=== PATIENT | male | born 1960 | race Caucasian/White ===

== ENCOUNTER 2019-04-15 22:02 | Inpatient (IN) | payer BC ==
[~2019-04-15] VITALS: Ht 185.4 cm; Wt 113.0 kg
[~2019-04-15 22:02] MED LIST: GEMF600T89 PO; GLIP5TAB26 PO; LISI40TA4 PO; METF1000 PO
[2019-04-15] MEDS ORDERED: normal saline 1000ML IV soln IVB ONE ×3 (22:20→23:05)
[2019-04-15] MEDS ORDERED: ondansetron/PF 4mg/2ml inj IV ONE (22:20)
[2019-04-15] MEDS: morphine 4 MG/ML inj SYRINge IV PRN ×2 (22:36→23:34)
[2019-04-15] MEDS ORDERED: morphine 4 MG/ML inj SYRINge IV ONE ×2 (22:55→23:50)
[2019-04-15 22:59] LABS: ALBUMIN 3.6 G/DL (3.4-5.0); ALKALINE PHOSPHATASE 118 IU/L (46-116); TOTAL CARBON DIOXIDE 23.8 MMOL/L (24-32)
[2019-04-15 23:02] LABS: BASOPHILS # (AUTO) 0.1 X10'3 (0-0.2); BASOPHILS % (AUTO) 0.5 % (0-1); EOSINOPHILS # (AUTO) 0.1 X10'3 (0-0.9); EOSINOPHILS % (AUTO) 0.6 % (0-6); HEMATOCRIT 45.6 % (42.0-52.0); HEMOGLOBIN 16.1 g/dl (14.0-17.9); LYMPHOCYTES # (AUTO) 1.7 X10'3 (1.1-4.8); LYMPHOCYTES % (AUTO) 9.1 % (21-51); MEAN CORPUSCULAR HEMOGLOBIN 29.5 PG (27.0-31.0); MEAN CORPUSCULAR HGB CONC 35.2 g/dL (33.0-36.5); MEAN CORPUSCULAR VOLUME 83.8 FL (78-98); MEAN PLATELET VOLUME 8.2 FL (7.4-10.4); MONOCYTES # (AUTO) 0.9 X10'3 (0-0.9); MONOCYTES % (AUTO) 4.4 % (2-12); NEUTROPHILS # (AUTO) 16.3 X10'3 (1.8-7.7); NEUTROPHILS % (AUTO) 85.4 % (42-75); PLATELET COUNT 418 X10'3 (140-440); RED BLOOD COUNT 5.45 X10'6 (4.70-6.10); RED CELL DISTRIBUTION WIDTH 14.8 % (11.5-14.5); WHITE BLOOD COUNT 19.1 X10'3 (4.5-11.0)
[2019-04-15] MEDS ORDERED: ROSU40TA22 (23:16)
[2019-04-15] MEDS ORDERED: CARV6.253 PO (23:16)
[2019-04-15] MEDS ORDERED: CANA300T PO (23:16)
[2019-04-15] MEDS ORDERED: CLOP75TA35 PO (23:16)
[2019-04-15] MEDS ORDERED: FENO145T38 PO (23:16)
[2019-04-15] MEDS ORDERED: ASPI-1264 PO (23:17)
[2019-04-15 23:18] LABS: CLARITY,URINE CLEAR (Clear); COLOR,URINE YELLOW (Yellow); GLUCOSE, URINE >=1000 mg/dl (Neg); KETONES,URINE TRACE mg/dl (Neg); LEUKOCYTE ESTERASE ,URINE NEGATIVE (Neg); NITRITES, URINE NEGATIVE (Neg); OCCULT BLOOD,URINE NEGATIVE (Neg); PH,URINE 5.5 (4.8-8.0); PROTEIN,URINE NEGATIVE (Neg); UA COLLECTION TYPE CLN CATCH MIDSTREAM; UROBILINOGEN,URINE 0.2 E.U/dL (0.2-1.0)
[2019-04-15] MEDS ORDERED: NAPR220T67 PO (23:18)
[2019-04-15 23:25] LABS: MUCUS STRANDS NONE SEEN /LPF (Neg); RBC,URINE 0-2 /HPF (0-2); SQUAMOUS EPITHELIAL CELL,UR FEW /LPF (FEW); WBC,URINE 0-4 /HPF (0-4)
[2019-04-15 23:26] LABS: BACTERIA,URINE NONE SEEN /HPF (Neg)
[2019-04-15 23:36] LABS: ALANINE AMINOTRANSFERASE 53 U/L (12-78); ALBUMIN/GLOBULIN RATIO 1.1 (1.1-1.5); ANION GAP 14 (8-16); ASPARTATE AMINO TRANSFERASE 31 U/L (10-37); BILIRUBIN,TOTAL 0.6 MG/DL (0.1-1.0); BLOOD UREA NITROGEN 23 MG/DL (7-18); CHLORIDE 102 MMOL/L (99-107); GLUCOSE 317 MG/DL (70-104); POTASSIUM 4.1 MMOL/L (3.5-5.1); SODIUM 140 MMOL/L (135-145); TOTAL PROTEIN 6.9 G/DL (6.4-8.2); eGFR 77 ML/MIN
[2019-04-15 23:59] LABS: LIPASE 7824 U/L (73-393)
[2019-04-16] MEDS ORDERED: acetaminophen 325mg tablet PO PRN (00:25)
[2019-04-16] MEDS ORDERED: morphine 2 MG/ML inj. syringe IV PRN ×3 (00:25→04:25)
[2019-04-16] MEDS ORDERED: mag hydrox/Alum hydrox/simeth 30ml oral suspension PO PRN (00:25)
[2019-04-16] MEDS ORDERED: potassium CL 10mEq/100ml bag 100 ML IV PRN ×2 (00:25)
[2019-04-16] MEDS ORDERED: magnesium hydroxide 30ml (MOM) UD suspension PO PRN (00:25)
[2019-04-16] MEDS ORDERED: potassium Cl 20 mEq SR tablet PO PRN ×2 (00:25)
[2019-04-16] MEDS ORDERED: magnesium Cl slow-release 64mg tablet PO PRN (00:25)
[2019-04-16] MEDS ORDERED: magnesium 2GM in 50ml NS 50 ML IV PRN (00:25)
[2019-04-16] MEDS ORDERED: magnesium 4gm in 100ml NS 100 ML IV PRN (00:25)
[2019-04-16] MEDS ORDERED: morphine 4 MG/ML inj SYRINge IV ONE (00:35)
[2019-04-16] MEDS ORDERED: morphine 10mg/ml inj. IV ONE (01:00)
--- NOTE | 2019-04-16 01:20 | NUR ---
Received report from Austyn VIDALES RN. Patient to arrive shortly.
[2019-04-16 01:30] VITALS: BP 145/92
--- NOTE | 2019-04-16 01:30 | NUR ---
Patient arrived to floor via w/c and ambulated over to his bed. A7Ox4 and accompanied by his . Patient settled into bed and VS taken. 98.1, 88, 16, 145/92, 92%RA, pain 5/10.
[2019-04-16] MEDS: normal saline 1000ml 1,000 ML IV SCH ×4 (02:12→22:33)
[2019-04-16] MEDS: ondansetron/PF 4mg/2ml inj IV PRN ×2 (02:16→10:25)
[2019-04-16] MEDS ORDERED: dextrose ORAL solution 15 GM/59 ML bottle PO PRN ×2 (02:25)
[2019-04-16] MEDS ORDERED: glucagon, human recombinant 1mg kit SUBCUT PRN (02:25)
[2019-04-16] MEDS: heparin, porcine 5000 units/ml vial SQ SCH ×4 (02:25→23:54)
[2019-04-16] MEDS ORDERED: dextrose 50%-water 50ml dispensing syringe IV PRN ×2 (02:25)
[2019-04-16] MEDS ORDERED: MESSAGE TO PHARMACY PO ONE (02:25)
--- NOTE | 2019-04-16 03:41 | NUR ---
MD had ordered heparin. Went to give and patient refused stating that he had already taken eliquist earlier in the daytime . Patient stated :"i have the right to refuse right? to which I replied yes, but I don't advise you too as this helps prevent blood clots. Patient still refused.
[2019-04-16] MEDS: HYDROcodone/acetaminophen 5mg/325mg tablet PO PRN ×2 (04:00→14:49)
[2019-04-16] MEDS: morphine 2 MG/ML inj. syringe IV PRN ×2 (05:09→07:27)
[2019-04-16 06:36] LABS: HDL CHOLESTEROL 18 MG/DL (35-60); LDL CHOLESTEROL 41 MG/DL (50-100)
[2019-04-16 06:42] LABS: CHOL/HDL RATIO 22.1 (0.00-4.99); CHOLESTEROL 398 MG/DL (0-200)
--- NOTE | 2019-04-16 06:51 | NUR ---
Problems reprioritized. Patient report given, questions answered & plan of care reviewed with Cynthia MCDERMOTT.
[2019-04-16 07:04] LABS: TRIGLYCERIDES 4298 MG/DL (20-135)
[2019-04-16] MEDS: insulin Lispro (HumaLOG) vial - multi-dose SQ SCH ×3 (07:33→19:04)
[2019-04-16 07:35] VITALS: BP 143/97
[2019-04-16] MEDS: K and/or MAG REPLACEMENT MC SCH ×2 (07:35→20:00)
[2019-04-16 07:45] VITALS: BP 128/95
[2019-04-16] MEDS ORDERED: pantoprazole 40 MG vial IV ONE (07:55)
[2019-04-16] MEDS ORDERED: heparin, porcine 5000 units/ml vial SQ SCH (08:00)
[2019-04-16] MEDS: gemfibrozil 600mg tablet PO SCH ×2 (08:00→20:00)
[2019-04-16] MEDS: carvedilol 6.25mg tablet PO SCH ×2 (08:29→20:51)
[2019-04-16] MEDS: aspirin 325mg tablet PO SCH ×2 (08:30→20:51)
[2019-04-16] MEDS: clopidogrel 75mg tablet PO SCH (08:30)
[2019-04-16] MEDS: morphine 4 MG/ML inj SYRINge IV PRN ×4 (10:25→18:35)
[2019-04-16 11:00] VITALS: BP 103/68
[2019-04-16] MEDS: fenofibrate 145mg tablet PO SCH (11:23)
--- NOTE | 2019-04-16 15:00 | NUR ---
DM consult: Pt admitted for pancreatitis related to hypertriglyceridemia and cholelithiasis with no obstruction. Pt documented with a A1c of 8.8. RD attempted pt bedside visit for DM, hypertriglyceridemia, and pancreatitis education, however pt in pain and requested to be seen later. Pt will need DM, hypertriglyceridemia and pancreatitis education prior to pt discharge. Pt currently NPO and no appetite per MD. LBM 04/15/19. Will continue to monitor. Recommendations: 1. Diet advancement to low fat, carb controlled diet as medically indicated 2. Bowel care as needed 3. weight per rx Addendum: 04/16/19 at 1500 by Wing Kaitlin MUÑIZ Amended: Links added. Addendum: 04/16/19 at [address] ANTONINO Approves
--- NOTE | 2019-04-16 18:26 | NUR ---
Patient in room [facility]AR[facility] 360. I have received report from Francesca MCDERMOTT and had the opportunity to ask questions and assume patient care.
--- NOTE | 2019-04-16 18:27 | NUR ---
Problems reprioritized. Patient report given, questions answered & plan of care reviewed with SHARRON Mayorga.
[2019-04-16 19:00] VITALS: BP 105/79
[2019-04-16] MEDS: insulin glargine (Lantus) pen - multi-dose SQ SCH (21:07)
[2019-04-17] VITALS (11 sets, daily range): BP systolic 69–150; BP diastolic 29–122
[2019-04-17] MEDS ORDERED: normal saline 1000ml 1,000 ML IVB ONE (01:59)
[2019-04-17] MEDS ORDERED: nitroGLYCERIN 0.4mg SUBLingual tab SL PRN (02:15)
--- NOTE | 2019-04-17 02:30 | NUR ---
At 0130 Charge nurse reported to this nurse that patient was uncomfortable and felt SOB (Via PATTERNMAKER who had heard him groaning while checking on A bed). Went to assess patient and found him slumped across the bed. Asked patient what was wrong and he stated " I feel like I am not getting any air." Encouraged patient to sit up instead of slouching and took pulse ox which read 92%on 2 L. Patient stated that he wanted nitro. When asked, patient denied having any chest pain, but said that he felt like this before 2 yrs ago when he had his stents placed. . VS at this time were: 98.3, 100,24,82/53, 92% 0n 2L via NC and denied having any pain. Instructed patient that I would go call MD for orders. New orders received As follows:- put patient in Trendelenburg position, bolus 1000NS for low BP. Draw 1 x troponin and take an EKG. Add prn ativan 1mg prn anxiety q 4hr( give only if systolic over 110), and prn nitro SL for chest pain. Patient was put in tredelenburg but only stayed in bed for about 5 minutes and then stated too uncomfortable, and wanted the recliner.
[2019-04-17 03:11] LABS: BASOPHILS # (AUTO) 0.1 X10'3 (0-0.2); MEAN PLATELET VOLUME 9.1 FL (7.4-10.4); MONOCYTES # (AUTO) 0.4 X10'3 (0-0.9)
[2019-04-17 03:12] LABS: BASOPHILS % (AUTO) 1.2 % (0-1); EOSINOPHILS % (AUTO) 0.5 % (0-6); LYMPHOCYTES # (AUTO) 0.9 X10'3 (1.1-4.8); LYMPHOCYTES % (AUTO) 10.1 % (21-51); MONOCYTES % (AUTO) 4.8 % (2-12); NEUTROPHILS # (AUTO) 7.4 X10'3 (1.8-7.7); NEUTROPHILS % (AUTO) 83.4 % (42-75); PLATELET COUNT 402 X10'3 (140-440); WHITE BLOOD COUNT 8.8 X10'3 (4.5-11.0)
[2019-04-17 03:23] LABS: TOTAL CARBON DIOXIDE 17.7 MMOL/L (24-32)
[2019-04-17 03:53] LABS: ALBUMIN 2.8 G/DL (3.4-5.0); ANION GAP 13 (8-16); BLOOD UREA NITROGEN 37 MG/DL (7-18); CALCIUM 6.8 MG/DL (8.5-10.1); CHLORIDE 98 MMOL/L (99-107); CREATININE 2.47 MG/DL (0.60-1.10); GLUCOSE 302 MG/DL (70-104); MAGNESIUM 1.9 MG/DL (1.5-2.4); POTASSIUM 5.5 MMOL/L (3.5-5.1); SODIUM 129 MMOL/L (135-145); TROPONIN I < 0.04 NG/ML (0.0-0.05); eGFR 27 ML/MIN
[2019-04-17 03:54] LABS: TRIGLYCERIDES 2601 MG/DL (20-135)
[2019-04-17 03:56] LABS: HEMATOCRIT 47.7 % (42.0-52.0); HEMOGLOBIN 15.5 g/dl (14.0-17.9); RED BLOOD COUNT 5.54 X10'6 (4.70-6.10)
[2019-04-17 03:57] LABS: MEAN CORPUSCULAR HGB CONC 32.5 g/dL (33.0-36.5); RED CELL DISTRIBUTION WIDTH 16.1 % (11.5-14.5)
[2019-04-17 04:42] LABS: PLATELET ESTIMATE NORMAL; TOTAL CELLS COUNTED 100
[2019-04-17 04:43] LABS: ANISOCYTOSIS 1+; LARGE PLATELETS FEW; TOXIC VACUOLATION 1+
[2019-04-17] MEDS: normal saline 1000ml 1,000 ML IV SCH ×2 (05:20→08:31)
--- NOTE | 2019-04-17 06:30 | NUR ---
Problems reprioritized. Patient report given, questions answered & plan of care reviewed with Francesca MCDERMOTT.
[2019-04-17] MEDS: K and/or MAG REPLACEMENT MC SCH ×2 (08:00→20:00)
[2019-04-17] MEDS: heparin, porcine 5000 units/ml vial SQ SCH ×2 (08:00→16:00)
[2019-04-17] MEDS: aspirin 325mg tablet PO SCH (08:32)
[2019-04-17] MEDS: gemfibrozil 600mg tablet PO SCH ×2 (08:32→22:29)
[2019-04-17] MEDS: carvedilol 6.25mg tablet PO SCH (08:32)
[2019-04-17] MEDS: atorvastatin 20mg tablet PO SCH (08:33)
[2019-04-17] MEDS: clopidogrel 75mg tablet PO SCH (08:33)
[2019-04-17] MEDS: HYDROcodone/acetaminophen 5mg/325mg tablet PO PRN (08:33)
[2019-04-17] MEDS: fenofibrate 145mg tablet PO SCH (08:33)
[2019-04-17] MEDS: pantoprazole 40mg Tablet.DR PO SCH (08:33)
[2019-04-17] MEDS: insulin Lispro (HumaLOG) vial - multi-dose SQ SCH ×3 (08:39→17:18)
[2019-04-17] MEDS ORDERED: heparin 25,000 UNIT/250ml bag 250 ML IV SCH (10:38)
[2019-04-17] MEDS ORDERED: heparin 10,000 units/1 ML INJ IV PRN (10:40)
[2019-04-17] MEDS ORDERED: heparin 10,000 units/1 ML INJ IV ONE (10:40)
[2019-04-17 11:01] LABS: ABG HCO3 14.7 mmol/L (22.0-26.0); ABG PCO2 (T) 36.4 mmHg (35.0-45.0); ABG PH (T) 7.225 (7.350-7.450); ABG PO2 (T) 192.9 mmHg (83-108); FCOHb 1.1 % (0.5-1.5); FMetHb 0.3 % (0.3-1.12); FO2Hb 97.6 % (94-100); TOTAL HEMOGLOBIN 14.9 G/dl (14.0-17.9)
[2019-04-17 11:04] LABS: BASOPHILS # (AUTO) 0.1 X10'3 (0-0.2); BASOPHILS % (AUTO) 0.7 % (0-1); EOSINOPHILS % (AUTO) 0.2 % (0-6); HEMATOCRIT 44.4 % (42.0-52.0); HEMOGLOBIN 14.9 g/dl (14.0-17.9); LYMPHOCYTES % (AUTO) 13.2 % (21-51); MEAN CORPUSCULAR HEMOGLOBIN 28.6 PG (27.0-31.0); MEAN CORPUSCULAR HGB CONC 33.6 g/dL (33.0-36.5); MEAN CORPUSCULAR VOLUME 85.3 FL (78-98); MEAN PLATELET VOLUME 8.7 FL (7.4-10.4); MONOCYTES # (AUTO) 0.3 X10'3 (0-0.9); MONOCYTES % (AUTO) 3.9 % (2-12); NEUTROPHILS # (AUTO) 6.4 X10'3 (1.8-7.7); PLATELET COUNT 302 X10'3 (140-440); RED BLOOD COUNT 5.21 X10'6 (4.70-6.10); RED CELL DISTRIBUTION WIDTH 16.1 % (11.5-14.5); WHITE BLOOD COUNT 7.8 X10'3 (4.5-11.0)
[2019-04-17 11:28] LABS: ALBUMIN 2.7 G/DL (3.4-5.0); ALKALINE PHOSPHATASE 73 IU/L (46-116); BILIRUBIN,TOTAL 1.2 MG/DL (0.1-1.0); BLOOD UREA NITROGEN 41 MG/DL (7-18); BUN/CREATININE RATIO 15.5 (5.4-32.0); CREATININE 2.65 MG/DL (0.60-1.10); TOTAL CARBON DIOXIDE 17.8 MMOL/L (24-32); eGFR 25 ML/MIN
[2019-04-17] MEDS ORDERED: LIDOcaine 2% 10ml TOPICAL JELLY (Urojet) MM ONE (11:40)
[2019-04-17] MEDS: diatr meglu/diatrizoate 30ml oral sol.-(3 dose) bottle PO SCH ×3 (11:44→17:38)
[2019-04-17] MEDS ORDERED: methylPREDNISolone sod succ 125mg/2ml vial IV ONE (11:50)
--- NOTE | 2019-04-17 12:00 | NUR ---
patient found with low o2 saturation and low BP. assessed patient. called rapid response and paged MD. MD called immediately and gave orders. rapid response team arrived. place patient on non-rebreather and his sats increased to 90-95%. CONTRACT ADMINISTRATION MANAGER gave 200 bolus which increased SBP to 173. CXR, ABG, Labs completed. at that time MD was at bedside. NG and West catheter placed. ABX and new meds that were ordered were given. patient stable on 4l NC and BP stable as well. Patient stated he felt immediate relief and his breathing was easier. will continue to monitor patient.
[2019-04-17 12:20] LABS: ALANINE AMINOTRANSFERASE 232 U/L (12-78); ALBUMIN/GLOBULIN RATIO 0.7 (1.1-1.5); ANION GAP 14 (8-16); ASPARTATE AMINO TRANSFERASE 311 U/L (10-37); CHLORIDE 100 MMOL/L (99-107); GLUCOSE 272 MG/DL (70-104); SODIUM 132 MMOL/L (135-145); TOTAL PROTEIN 6.4 G/DL (6.4-8.2)
[2019-04-17] MEDS: cefepime 1GM in D5W 50mL 50 ML IV SCH (12:28)
[2019-04-17 13:00] LABS: LIPASE 2917 U/L (73-393); POTASSIUM 4.8 MMOL/L (3.5-5.1)
[2019-04-17 13:07] LABS: CALCIUM 7.3 MG/DL (8.5-10.1)
--- NOTE | 2019-04-17 13:32 | NUR ---
PAGER ID: [phone] MESSAGE: Ambar Melgar 360B : how quick would you like the quick prep? patient also stating he will refuse CT and has refused VQ scan. [phone]
[2019-04-17] MEDS: metroNIDAZOLE-Flagyl 500mg/NS 100 ML IV SCH ×2 (13:42→16:00)
[2019-04-17] MEDS: sodium bicarbonate (8.4%) inj. 100 MEQ in sodium chloride 0.45% 1,000 ML IV SCH (16:03)
[2019-04-17] MEDS: LORazepam 1 MG tablet PO PRN ×2 (17:36→22:29)
--- NOTE | 2019-04-17 17:45 | NUR ---
Patient taken to CT scan.
--- NOTE | 2019-04-17 18:16 | NUR ---
Problems reprioritized. Patient report given, questions answered & plan of care reviewed with SHARRON Mayorag.
--- NOTE | 2019-04-17 18:40 | NUR ---
Patient in room [facility]AR[facility] 357. I have received report from Francesca MCDERMOTT and had the opportunity to ask questions and assume patient care.
[2019-04-17] MEDS: methylPREDNISolone sod succ 125mg/2ml vial IV SCH (20:00)
[2019-04-17] MEDS: insulin glargine (Lantus) pen - multi-dose SQ SCH (21:32)
--- NOTE | 2019-04-17 23:00 | NUR ---
DUMP TRUCK DRIVER OFF [address] went into room as bed alarm going off and found patient OOB with nasogastric tube and PIV to LAC pulled out. Patient confused stating that he needed to pee. West catheter shown to pt. but pt. insisted on sitting on the toilet holding his penis. Pt. eventually agreed to get back into bed and supplies gathered for replacing nasogastric tube. REplacement unsuccessful as patient got agitated half way through (it was almost in the correct place and then he pulled it out. Patient then ademently refused to allow for replacement. Total of bile from 1800 to then =450cc. Emptied F/c as getting fukll and total =1900 dark jason - no smell.
[2019-04-18] VITALS: BP 113/71
[2019-04-18] MEDS: ipratropium/albuterol 3ml nebule NEB SCH ×7 (00:06→23:49)
[2019-04-18] MEDS: sodium bicarbonate (8.4%) inj. 100 MEQ in sodium chloride 0.45% 1,000 ML IV SCH ×2 (02:05→17:23)
[2019-04-18] MEDS: heparin, porcine 5000 units/ml vial SQ SCH ×4 (02:17→23:58)
[2019-04-18] MEDS: methylPREDNISolone sod succ 125mg/2ml vial IV SCH ×4 (02:17→20:28)
[2019-04-18] MEDS: metroNIDAZOLE-Flagyl 500mg/NS 100 ML IV SCH ×2 (02:26→08:36)
--- NOTE | 2019-04-18 03:15 | NUR ---
Patient moved to room 357A as kept trying to pull out tubing and get OOB by himself.
--- NOTE | 2019-04-18 05:30 | NUR ---
Erika martines called as patient getting very belligerent stating he was going to get water to drink. Patient is NPO. Pt. has been given swabs through out shift for dry mouth and nurse stated I would give him another if he would just stop trying to climb over the rails. Pt. pushing nurse so erika terry and security called. male staff managed to get patient back into bed and co-operate.
--- NOTE | 2019-04-18 05:51 | NUR ---
Before 10pm last patient had an episode of very high respirations (50) and was put back on the non rebreather mask at 15L as sats down at 88/89. VS were taken and patient was afebrile, 125/88, pulse 105 . Sats went up to 95 and pt. put back on nc at 5L. Pt. now receiving ATC BR TX. Did not give coreg as pt. needed to have ativan to help him relax and did not want BP to drop down. l Addendum: 04/18/19 at 0726 by Tierra Francisco RN Ativan given to help patient relax and try to get some rest. Bed was in low postition with 2 xSR up. Patient was positioned for comfort using pillows.
[2019-04-18 05:54] LABS: HEMATOCRIT 41.6 % (42.0-52.0); HEMOGLOBIN 14.2 g/dl (14.0-17.9); RED BLOOD COUNT 4.93 X10'6 (4.70-6.10)
[2019-04-18 05:57] LABS: MEAN CORPUSCULAR HEMOGLOBIN 28.8 PG (27.0-31.0); MEAN CORPUSCULAR VOLUME 84.5 FL (78-98); MEAN PLATELET VOLUME 8.4 FL (7.4-10.4); PLATELET COUNT 258 X10'3 (140-440); RED CELL DISTRIBUTION WIDTH 15.8 % (11.5-14.5); WHITE BLOOD COUNT 4.9 X10'3 (4.5-11.0)
[2019-04-18 06:19] LABS: ALBUMIN 2.6 G/DL (3.4-5.0); ALBUMIN/GLOBULIN RATIO 0.7 (1.1-1.5); ALKALINE PHOSPHATASE 72 IU/L (46-116); ANION GAP 14 (8-16); BILIRUBIN,TOTAL 1.1 MG/DL (0.1-1.0); BLOOD UREA NITROGEN 43 MG/DL (7-18); BUN/CREATININE RATIO 34.4 (5.4-32.0); CALCIUM 7.6 MG/DL (8.5-10.1); CHLORIDE 102 MMOL/L (99-107); CREATININE 1.25 MG/DL (0.60-1.10); GLUCOSE 153 MG/DL (70-104); LIPASE 1022 U/L (73-393); MAGNESIUM 2.2 MG/DL (1.5-2.4); SODIUM 135 MMOL/L (135-145); TOTAL CARBON DIOXIDE 18.6 MMOL/L (24-32); TOTAL PROTEIN 6.4 G/DL (6.4-8.2); eGFR 59 ML/MIN
[2019-04-18 06:50] LABS: ALANINE AMINOTRANSFERASE 182 U/L (12-78); ASPARTATE AMINO TRANSFERASE 129 U/L (10-37)
[2019-04-18 06:55] LABS: PHOSPHORUS 3.2 MG/DL (2.3-4.5); POTASSIUM 3.9 MMOL/L (3.5-5.1); TRIGLYCERIDES 1806 MG/DL (20-135)
[2019-04-18 06:59] LABS: TOTAL CELLS COUNTED 100
[2019-04-18 07:00] LABS: PLATELET ESTIMATE NORMAL; TOXIC GRANULATION 1+; TOXIC VACUOLATION 1+
[2019-04-18 07:02] LABS: ANISOCYTOSIS 1+
[2019-04-18 08:00] VITALS: BP 169/92
[2019-04-18] MEDS: K and/or MAG REPLACEMENT MC SCH ×2 (08:00→20:00)
[2019-04-18] MEDS: atorvastatin 20mg tablet PO SCH (08:34)
[2019-04-18] MEDS: gemfibrozil 600mg tablet PO SCH ×2 (08:34→20:28)
[2019-04-18] MEDS: fenofibrate 145mg tablet PO SCH (08:34)
[2019-04-18] MEDS: pantoprazole 40mg Tablet.DR PO SCH (08:34)
[2019-04-18] MEDS: aspirin 81mg tab.chew PO SCH (08:34)
[2019-04-18] MEDS: clopidogrel 75mg tablet PO SCH (08:34)
[2019-04-18] MEDS: carVEDilol 3.125mg tablet PO SCH ×2 (08:34→20:28)
[2019-04-18] MEDS: omega-3 acid ethyl esters 1GM capsule PO SCH ×2 (08:35→20:28)
[2019-04-18] MEDS: HYDROcodone/acetaminophen 5mg/325mg tablet PO PRN (08:59)
[2019-04-18] MEDS: cefepime 1GM in D5W 50mL 50 ML IV SCH (10:38)
[2019-04-18 11:00] VITALS: BP 133/90
[2019-04-18 12:30] VITALS: BP 146/94
[2019-04-18] MEDS: morphine 2 MG/ML inj. syringe IV PRN ×2 (12:30→23:59)
[2019-04-18] MEDS: insulin Lispro (HumaLOG) vial - multi-dose SQ SCH ×2 (13:14→19:04)
[2019-04-18] MEDS: metroNIDAZOLE 500mg tablet PO SCH ×2 (17:22→23:58)
[2019-04-18 20:00] VITALS: BP 158/98
[2019-04-18] MEDS: lactobacillus rhamnosus 10,000 MMU CELLS/CAPSULE PO SCH (20:28)
[2019-04-18] MEDS: insulin glargine (Lantus) pen - multi-dose SQ SCH (20:36)
[2019-04-18] MEDS: methylPREDNISolone sod succ/PF 40mg inj. IV SCH (23:58)
[2019-04-19] VITALS: BP 156/102
[2019-04-19] MEDS: sodium bicarbonate (8.4%) inj. 100 MEQ in sodium chloride 0.45% 1,000 ML IV SCH ×2 (00:05→10:10)
[2019-04-19] MEDS: ipratropium/albuterol 3ml nebule NEB SCH ×6 (03:42→23:00)
--- NOTE | 2019-04-19 06:12 | NUR ---
Problems reprioritized. Patient report given, questions answered & plan of care reviewed with SHARRON Avendano.
[2019-04-19 06:34] LABS: BASOPHILS % (AUTO) 0.2 % (0-1); EOSINOPHILS % (AUTO) 0.1 % (0-6); HEMATOCRIT 40.5 % (42.0-52.0); HEMOGLOBIN 13.6 g/dl (14.0-17.9); LYMPHOCYTES # (AUTO) 0.5 X10'3 (1.1-4.8); LYMPHOCYTES % (AUTO) 9.3 % (21-51); MEAN CORPUSCULAR HEMOGLOBIN 28.1 PG (27.0-31.0); MEAN CORPUSCULAR HGB CONC 33.6 g/dL (33.0-36.5); MEAN CORPUSCULAR VOLUME 83.5 FL (78-98); MEAN PLATELET VOLUME 8.4 FL (7.4-10.4); MONOCYTES # (AUTO) 0.4 X10'3 (0-0.9); MONOCYTES % (AUTO) 7.4 % (2-12); NEUTROPHILS # (AUTO) 4.8 X10'3 (1.8-7.7); PLATELET COUNT 311 X10'3 (140-440); RED BLOOD COUNT 4.85 X10'6 (4.70-6.10); WHITE BLOOD COUNT 5.7 X10'3 (4.5-11.0)
[2019-04-19 07:05] LABS: ALANINE AMINOTRANSFERASE 151 U/L (12-78); ALBUMIN 2.6 G/DL (3.4-5.0); ALBUMIN/GLOBULIN RATIO 0.7 (1.1-1.5); ALKALINE PHOSPHATASE 74 IU/L (46-116); ANION GAP 16 (8-16); ASPARTATE AMINO TRANSFERASE 92 U/L (10-37); BILIRUBIN,TOTAL 0.9 MG/DL (0.1-1.0); BLOOD UREA NITROGEN 35 MG/DL (7-18); BUN/CREATININE RATIO 37.2 (5.4-32.0); CALCIUM 8.4 MG/DL (8.5-10.1); CHLORIDE 106 MMOL/L (99-107); CREATININE 0.94 MG/DL (0.60-1.10); GLUCOSE 210 MG/DL (70-104); LIPASE 768 U/L (73-393); MAGNESIUM 2.8 MG/DL (1.5-2.4); PHOSPHORUS 2.3 MG/DL (2.3-4.5); SODIUM 143 MMOL/L (135-145); TOTAL CARBON DIOXIDE 20.9 MMOL/L (24-32); TOTAL PROTEIN 6.2 G/DL (6.4-8.2); TRIGLYCERIDES 908 MG/DL (20-135); eGFR 82 ML/MIN
[2019-04-19 07:06] LABS: POTASSIUM 3.9 MMOL/L (3.5-5.1)
[2019-04-19 07:27] VITALS: BP 162/98
[2019-04-19 07:47] LABS: TOTAL CELLS COUNTED 100
[2019-04-19 07:48] LABS: ANISOCYTOSIS 1+; PLATELET ESTIMATE NORMAL
[2019-04-19] MEDS: K and/or MAG REPLACEMENT MC SCH ×2 (08:00→20:00)
[2019-04-19] MEDS: aspirin 81mg tab.chew PO SCH (08:35)
[2019-04-19] MEDS: gemfibrozil 600mg tablet PO SCH ×2 (08:36→19:31)
[2019-04-19] MEDS: atorvastatin 20mg tablet PO SCH (08:36)
[2019-04-19] MEDS: carVEDilol 3.125mg tablet PO SCH ×2 (08:36→19:31)
[2019-04-19] MEDS: clopidogrel 75mg tablet PO SCH (08:36)
[2019-04-19] MEDS: heparin, porcine 5000 units/ml vial SQ SCH ×2 (08:37→16:49)
[2019-04-19] MEDS: cefepime 1GM in D5W 50mL 50 ML IV SCH (08:37)
[2019-04-19] MEDS: fenofibrate 145mg tablet PO SCH (08:37)
[2019-04-19] MEDS: insulin Lispro (HumaLOG) vial - multi-dose SQ SCH ×3 (08:40→19:27)
[2019-04-19] MEDS: methylPREDNISolone sod succ/PF 40mg inj. IV SCH (08:43)
[2019-04-19] MEDS: metroNIDAZOLE 500mg tablet PO SCH ×2 (08:43→15:57)
[2019-04-19] MEDS: lactobacillus rhamnosus 10,000 MMU CELLS/CAPSULE PO SCH ×2 (08:43→19:31)
[2019-04-19] MEDS: omega-3 acid ethyl esters 1GM capsule PO SCH ×2 (10:10→19:40)
[2019-04-19] MEDS: pantoprazole 40mg Tablet.DR PO SCH (10:10)
[2019-04-19 12:00] VITALS: BP 157/92
[2019-04-19] MEDS: normal saline 1000ml 1,000 ML IV SCH (14:03)
--- NOTE | 2019-04-19 15:15 | NUR ---
Reassessment: Pt s/p rapid response 04/17 d/t respiratory distress. Pt pulled out NG tube, currently with a sitter d/t s/p code terry 04/18. PO diet has been advanced to clear liquid today and pt with 100% PO intake. TG and lipase levels are trending towards normal limits however remain elevated, TG 908 and lipase 768 today. LBM 04/18. Will continue to follow and f/u with pt for educations once more appropriate. Recommendations: 1. Diet advancement to low fat, carb controlled diet as medically indicated 2. Nutrition therapy educations once stable 3. Bowel care as needed 4. Weight per rx Addendum: 04/19/19 at 1515 [address] Amended: Links added.
--- NOTE | 2019-04-19 15:59 | NUR ---
DM education with referral to outpatient DM class, high triglyceride nutrition therapy, heart healthy consistent carbohydrate nutrition therapy, and pancreatitis nutrition therapy educations with RD contact information mailed to patient's home address found in [employer]. Will f/u with pt for verbal review once stable. Addendum: 04/19/19 at 15[address] by [address] Amended: Links added.
[2019-04-19] MEDS: HYDROcodone/acetaminophen 5mg/325mg tablet PO PRN (16:00)
[2019-04-19 18:00] VITALS: BP 128/78
--- NOTE | 2019-04-19 18:33 | NUR ---
Problems reprioritized. Patient report given, questions answered & plan of care reviewed with SHARRON Rob.
--- NOTE | 2019-04-19 18:38 | NUR ---
Patient in room [facility] 357A. I have received report from SHARRON Sagastume and had the opportunity to ask questions and assume patient care.
[2019-04-19] MEDS ORDERED: VANCOMYCIN LEVEL IV ONE (19:30)
[2019-04-19] MEDS ORDERED: methylPREDNISolone sod succ/PF 40mg inj. IV SCH (20:00)
[2019-04-19] MEDS: insulin glargine (Lantus) pen - multi-dose SQ SCH (21:20)
[2019-04-19 23:15] VITALS: BP 140/94
[2019-04-19] MEDS ORDERED: aspirin 81mg tab.chew PO ONE (23:45)
[2019-04-20] VITALS: BP 139/79
[2019-04-20] MEDS: metroNIDAZOLE 500mg tablet PO SCH ×4 (00:06→23:34)
[2019-04-20] MEDS: heparin, porcine 5000 units/ml vial SQ SCH ×4 (00:08→23:34)
--- NOTE | 2019-04-20 00:10 | NUR ---
Hospitalist informed that the Troponin level was 0.24 and he was still having some chest pain. Orders received :Troponin at Q3 hr and 6hrs, 0.2mg Nitro patch. Will continue to monitor.
--- NOTE | 2019-04-20 00:16 | NUR ---
2315: Patient reported chest pain to [employer] while she was taking his vital signs. BP:140/94, HR:66, R:16, 95 3L. Pain at a 5. Patient states the pain is "chest"pain, but is pointing to the epigastric area, it is not radiating, and it fung and feels tight. I gave Maalox, and ECG was done ( showed sinus rhythm) I also took his blood sugar and it was 156. I went in to give him Nitro and he informed me that he had already taken two of his own. One at 1999 and the second at 2099. I educated him on how he showed not be taking his own medications and I took them out of his room. I had been in his room at [phone] passing his scheduled medications, and I did his assessment. I even asked him if he was having any abdominal pain or any other pain and he denied having any. He did not mention having chest pain at that time. At 2119 I was in his room taking his blood sugar and giving insulin and he did not mention any chest pain. Hospitalist was also notified and an order for two troponins were given. 0000: Patient still complaining of chest pain. He wanted Aspirin. I called the Hospitalist back and got an order for Aspirin chewable. Will continue to monitor. Addendum: 04/20/19 at 0321 by Darron Polk RN *should
[2019-04-20] MEDS ORDERED: nitroGLYCERIN 0.2mg/hour patch TD SCH (01:22)
[2019-04-20] MEDS: HYDROcodone/acetaminophen 5mg/325mg tablet PO PRN ×2 (02:58→23:00)
[2019-04-20 03:00] VITALS: BP 147/83
[2019-04-20] MEDS: ipratropium/albuterol 3ml nebule NEB SCH ×6 (03:00→23:00)
[2019-04-20 03:46] LABS: HEMATOCRIT 36.7 % (42.0-52.0); HEMOGLOBIN 12.2 g/dl (14.0-17.9); MEAN CORPUSCULAR HEMOGLOBIN 27.8 PG (27.0-31.0); MEAN CORPUSCULAR HGB CONC 33.3 g/dL (33.0-36.5); MEAN CORPUSCULAR VOLUME 83.5 FL (78-98); MEAN PLATELET VOLUME 8.4 FL (7.4-10.4); PLATELET COUNT 271 X10'3 (140-440); WHITE BLOOD COUNT 6.4 X10'3 (4.5-11.0)
[2019-04-20 04:00] LABS: ALANINE AMINOTRANSFERASE 109 U/L (12-78); ALBUMIN 2.5 G/DL (3.4-5.0); ALBUMIN/GLOBULIN RATIO 0.8 (1.1-1.5); ALKALINE PHOSPHATASE 67 IU/L (46-116); ANION GAP 7 (8-16); ASPARTATE AMINO TRANSFERASE 56 U/L (10-37); BILIRUBIN,TOTAL 0.8 MG/DL (0.1-1.0); BLOOD UREA NITROGEN 33 MG/DL (7-18); BUN/CREATININE RATIO 37.9 (5.4-32.0); CALCIUM 8.2 MG/DL (8.5-10.1); CHLORIDE 106 MMOL/L (99-107); CREATININE 0.87 MG/DL (0.60-1.10); GLUCOSE 184 MG/DL (70-104); LIPASE 600 U/L (73-393); MAGNESIUM 2.5 MG/DL (1.5-2.4); PHOSPHORUS 2.2 MG/DL (2.3-4.5); POTASSIUM 3.9 MMOL/L (3.5-5.1); SODIUM 140 MMOL/L (135-145); TOTAL CARBON DIOXIDE 27.3 MMOL/L (24-32); TOTAL PROTEIN 5.6 G/DL (6.4-8.2); TRIGLYCERIDES 394 MG/DL (20-135); TROPONIN I 0.24 NG/ML (0.0-0.05); eGFR 90 ML/MIN
--- NOTE | 2019-04-20 04:28 | NUR ---
3hr Troponin level was drawn. It remains 0.24. Patient is resting with eyes closed in no apparent distress at this time.
[2019-04-20] MEDS: morphine 2 MG/ML inj. syringe IV PRN ×10 (04:47→23:35)
--- NOTE | 2019-04-20 06:31 | NUR ---
Problems reprioritized. Patient report given, questions answered & plan of care reviewed with SHARRON Rios.
[2019-04-20 07:00] VITALS: BP 147/88
[2019-04-20 07:35] LABS: ANISOCYTOSIS 1+; PLATELET ESTIMATE NORMAL; POLYCHROMASIA 1+; TOTAL CELLS COUNTED 100; TOXIC GRANULATION 1+
[2019-04-20] MEDS: pantoprazole 40mg Tablet.DR PO SCH (07:37)
[2019-04-20] MEDS: K and/or MAG REPLACEMENT MC SCH ×2 (08:00→20:00)
[2019-04-20] MEDS: sodium bicarbonate 650mg tablet PO SCH ×3 (08:11→21:06)
[2019-04-20] MEDS: carVEDilol 3.125mg tablet PO SCH ×2 (08:12→20:00)
[2019-04-20] MEDS: clopidogrel 75mg tablet PO SCH (08:12)
[2019-04-20] MEDS: lactobacillus rhamnosus 10,000 MMU CELLS/CAPSULE PO SCH ×2 (08:12→21:05)
[2019-04-20] MEDS: atorvastatin 20mg tablet PO SCH (08:12)
[2019-04-20] MEDS: aspirin 81mg tab.chew PO SCH (08:12)
[2019-04-20] MEDS: fenofibrate 145mg tablet PO SCH (08:12)
[2019-04-20] MEDS: gemfibrozil 600mg tablet PO SCH ×2 (08:12→21:06)
[2019-04-20] MEDS: methylPREDNISolone sod succ/PF 40mg inj. IV SCH (08:13)
[2019-04-20] MEDS: omega-3 acid ethyl esters 1GM capsule PO SCH ×2 (08:19→21:05)
[2019-04-20] MEDS: cefepime 1GM in D5W 50mL 50 ML IV SCH (08:20)
[2019-04-20] MEDS: insulin Lispro (HumaLOG) vial - multi-dose SQ SCH ×3 (08:31→19:50)
[2019-04-20] MEDS: normal saline 1000ml 1,000 ML IV SCH (10:00)
--- NOTE | 2019-04-20 10:30 | NUR ---
PT STILL C/O CHEST PAIN. 6AM TROP SAME IT TEACHER, NOT INCREASED BUT STILL 0.24. DR BANERJEE HAS ORDERED MAURILIO SCAN FOR TOMORROW. WILL CONTINUE TO MONITOR.
[2019-04-20] MEDS ORDERED: regadenoson 0.4mg/5ml syringe IV ONE (10:40)
[2019-04-20] MEDS ORDERED: metoprolol tartrate 1mg/ml inj IV PRN (10:40)
[2019-04-20] MEDS ORDERED: potassium phosphate inj 30 MMOL in normal saline 500ml IV soln 490 ML IV ONE (10:40)
[2019-04-20] MEDS ORDERED: aminophylline 250mg/10ml inj. IV PRN (10:40)
[2019-04-20] MEDS ORDERED: nitroGLYCERIN 0.4mg SUBLingual tab SL PRN (10:40)
[2019-04-20 11:00] VITALS: BP 144/86
--- NOTE | 2019-04-20 14:00 | NUR ---
DR BANERJEE HAS ROUNDED ON PATIENT. PT STILL C/O CHEST PAIN. PER DR BANERJEE, CONTINUE TO GIVE Q1H MORPHINE PRN FOR CHEST PAIN, PUT ON TELE MONITOR, KEEP ON 02, PT NASAL CANNULA PUT BACK ON AT 2L. NEW SINGLE TROPONIN ORDERED. PER DR BANERJEE IF TROP HAS INCREASED FROM 0.24 PT WILL NEED TO START HEPARIN DRIP. I WILL CALL HIM WITH RESULTS.
--- NOTE | 2019-04-20 15:00 | NUR ---
TROPONIN DECREASED FROM AM. 0.12. NOTIFIED DR BANERJEE OF RESULTS. NO NEED FOR HEPARIN DRIP AT THIS TIME ACCORDING TO PREVIOUS CONVERSATION WITH DR BANERJEE. MORPHINE BEING GIVEN EVERY 2-3 HR BY PATIENT REQUEST. STATES PAIN HAS NOT CHANGED BUT MORPHINE HELPS FOR SHORT TIME. WILL CONTINUE TO MONITOR.
--- NOTE | 2019-04-20 16:27 | NUR ---
Patient and his seen at bedside and given written DM education with referral to outpatient DM class, high triglyceride nutrition therapy, heart healthy consistent carbohydrate nutrition therapy, and pancreatitis nutrition therapy education handouts with verbal review of all. Addendum: 04/20/19 at [address] Amended: Links added.
[2019-04-20 19:30] VITALS: BP 159/94
--- NOTE | 2019-04-20 19:30 | NUR ---
mary SOB Addendum: 04/21/19 at 0229 by Genie Dee RN Amended: Links added.
--- NOTE | 2019-04-20 20:06 | NUR ---
Problems reprioritized. Patient report given, questions answered & plan of care reviewed with Pat RN.
--- NOTE | 2019-04-20 22:00 | NUR ---
pt's hear rate monitored; discussed with Tamara on tele unit who reports pt's HR trend has been below 60; pt's b/p at 159/94 earlier this shift; coreg held; Dr Waite informed; also informed of pt's chest pain & meds ordered; discussed norco & ativan for breakthru pain; aware of order for Halie scan tomorrow
[2019-04-20 23:00] VITALS: BP 168/97
[2019-04-20] MEDS: insulin glargine (Lantus) pen - multi-dose SQ SCH (23:09)
[2019-04-21] VITALS (18 sets, daily range): BP systolic 108–164; BP diastolic 46–100
[2019-04-21] MEDS: morphine 2 MG/ML inj. syringe IV PRN ×8 (00:53→22:32)
[2019-04-21] MEDS: LORazepam 1 MG tablet PO PRN (01:09)
[2019-04-21] MEDS ORDERED: nitroGLYCERIN 0.2mg/hour patch TD SCH (02:43)
[2019-04-21] MEDS: ipratropium/albuterol 3ml nebule NEB SCH ×6 (03:00→23:00)
[2019-04-21] MEDS: HYDROcodone/acetaminophen 5mg/325mg tablet PO PRN ×2 (03:34→19:17)
[2019-04-21] MEDS: normal saline 1000ml 1,000 ML IV SCH (04:07)
[2019-04-21 05:27] LABS: BASOPHILS % (AUTO) 0.1 % (0-1); EOSINOPHILS # (AUTO) 0.1 X10'3 (0-0.9); EOSINOPHILS % (AUTO) 0.7 % (0-6); HEMATOCRIT 39.3 % (42.0-52.0); HEMOGLOBIN 13.3 g/dl (14.0-17.9); LYMPHOCYTES # (AUTO) 1.2 X10'3 (1.1-4.8); LYMPHOCYTES % (AUTO) 12.3 % (21-51); MEAN CORPUSCULAR HEMOGLOBIN 28.1 PG (27.0-31.0); MEAN CORPUSCULAR HGB CONC 33.8 g/dL (33.0-36.5); MEAN CORPUSCULAR VOLUME 83.3 FL (78-98); MEAN PLATELET VOLUME 8.5 FL (7.4-10.4); MONOCYTES # (AUTO) 0.6 X10'3 (0-0.9); MONOCYTES % (AUTO) 6.5 % (2-12); NEUTROPHILS # (AUTO) 7.6 X10'3 (1.8-7.7); NEUTROPHILS % (AUTO) 80.4 % (42-75); PLATELET COUNT 233 X10'3 (140-440); RED BLOOD COUNT 4.71 X10'6 (4.70-6.10); RED CELL DISTRIBUTION WIDTH 16.1 % (11.5-14.5); WHITE BLOOD COUNT 9.5 X10'3 (4.5-11.0)
[2019-04-21] MEDS: nitroGLYCERIN 0.4mg/hour patch TD SCH (05:29)
[2019-04-21 05:53] LABS: ALANINE AMINOTRANSFERASE 103 U/L (12-78); ALBUMIN 2.7 G/DL (3.4-5.0); ALBUMIN/GLOBULIN RATIO 0.8 (1.1-1.5); ALKALINE PHOSPHATASE 88 IU/L (46-116); ANION GAP 9 (8-16); ASPARTATE AMINO TRANSFERASE 69 U/L (10-37); BILIRUBIN,TOTAL 1.1 MG/DL (0.1-1.0); BLOOD UREA NITROGEN 16 MG/DL (7-18); BUN/CREATININE RATIO 22.5 (5.4-32.0); CALCIUM 8.3 MG/DL (8.5-10.1); CHLORIDE 103 MMOL/L (99-107); CREATININE 0.71 MG/DL (0.60-1.10); GLUCOSE 122 MG/DL (70-104); LIPASE 717 U/L (73-393); MAGNESIUM 1.9 MG/DL (1.5-2.4); PHOSPHORUS 2.7 MG/DL (2.3-4.5); POTASSIUM 3.5 MMOL/L (3.5-5.1); SODIUM 139 MMOL/L (135-145); TOTAL CARBON DIOXIDE 26.7 MMOL/L (24-32); TOTAL PROTEIN 5.9 G/DL (6.4-8.2); TRIGLYCERIDES 538 MG/DL (20-135); eGFR > 90 ML/MIN
--- NOTE | 2019-04-21 06:46 | NUR ---
Patient in room [facility] 348. I have received report from SHARRON ROSS and had the opportunity to ask questions and assume patient care.
[2019-04-21] MEDS: clopidogrel 75mg tablet PO SCH (08:00)
[2019-04-21] MEDS: K and/or MAG REPLACEMENT MC SCH ×2 (08:00→20:00)
[2019-04-21] MEDS: sodium bicarbonate 650mg tablet PO SCH ×3 (08:00→20:43)
[2019-04-21] MEDS: heparin, porcine 5000 units/ml vial SQ SCH ×3 (08:00→23:57)
[2019-04-21] MEDS: cefepime 1GM in D5W 50mL 50 ML IV SCH (08:07)
[2019-04-21] MEDS: methylPREDNISolone sod succ/PF 40mg inj. IV SCH (08:07)
[2019-04-21] MEDS: lactobacillus rhamnosus 10,000 MMU CELLS/CAPSULE PO SCH ×2 (08:08→20:43)
[2019-04-21] MEDS: atorvastatin 20mg tablet PO SCH (08:08)
[2019-04-21] MEDS: pantoprazole 40mg Tablet.DR PO SCH (08:08)
[2019-04-21] MEDS: gemfibrozil 600mg tablet PO SCH ×2 (08:08→20:43)
[2019-04-21] MEDS: fenofibrate 145mg tablet PO SCH (08:08)
[2019-04-21] MEDS: metroNIDAZOLE 500mg tablet PO SCH ×3 (08:08→23:57)
[2019-04-21] MEDS: aspirin 81mg tab.chew PO SCH (08:30)
--- NOTE | 2019-04-21 10:49 | NUR ---
REGULAR COKE BEVERAGE GIVEN TO PATIENT TO REVERSE SIDE EFFECTS OF LEXISCAN PROCEDURE, NO DIET COKE AVAILABLE.
[2019-04-21] MEDS: omega-3 acid ethyl esters 1GM capsule PO SCH ×2 (12:09→20:49)
[2019-04-21] MEDS: carVEDilol 3.125mg tablet PO SCH ×2 (12:09→20:43)
--- NOTE | 2019-04-21 13:45 | NUR ---
GAVE REPORT TO SHARRON EKNYON ON PCU
[2019-04-21] MEDS: ondansetron/PF 4mg/2ml inj IV PRN (14:39)
[2019-04-21] MEDS: insulin Lispro (HumaLOG) vial - multi-dose SQ SCH ×2 (14:43→19:27)
--- NOTE | 2019-04-21 15:07 | NUR ---
recieved report from Britta.RN pt arrived to Rm 3023B A&Ox3
[2019-04-21] MEDS: insulin glargine (Lantus) pen - multi-dose SQ SCH (21:45)
--- NOTE | 2019-04-21 22:33 | NUR ---
Pt C/o of 8 sternal burning pain did not increase to palpation patient stated it was different than his previous experience of chest pain, made him feel "More tired than usual and sob". 12 lead EKG was performed. 2mg IVP morphine was administered 5 mins post admin patient stated he pain is @ "310 now" he is sitting at the edge of the bed in significantly less distress. Pt had chemical +qian scan earlier today possible consult with cardiology tomorrow AM.
--- NOTE | 2019-04-21 22:53 | NUR ---
ekg assessed per Dr. Waite
[2019-04-22] VITALS (13 sets, daily range): BP systolic 120–164; BP diastolic 64–92
[2019-04-22] MEDS: morphine 2 MG/ML inj. syringe IV PRN ×6 (02:09→09:57)
[2019-04-22] MEDS: ipratropium/albuterol 3ml nebule NEB SCH ×3 (04:00→11:00)
[2019-04-22] MEDS: nitroGLYCERIN 0.4mg/hour patch TD SCH (04:57)
[2019-04-22] MEDS: normal saline 1000ml 1,000 ML IV SCH (04:58)
--- NOTE | 2019-04-22 06:12 | NUR ---
Patient in room PCU 3023b. I have received report from Felicia MCDERMOTT and had the opportunity to ask questions and assume patient care.
[2019-04-22 07:02] LABS: ALANINE AMINOTRANSFERASE 110 U/L (12-78); ALBUMIN 2.2 G/DL (3.4-5.0); ALKALINE PHOSPHATASE 153 IU/L (46-116); ANION GAP 8 (8-16); ASPARTATE AMINO TRANSFERASE 119 U/L (10-37); BILIRUBIN,TOTAL 4.3 MG/DL (0.1-1.0); BLOOD UREA NITROGEN 9 MG/DL (7-18); BUN/CREATININE RATIO 14.1 (5.4-32.0); CALCIUM 8.4 MG/DL (8.5-10.1); CHLORIDE 101 MMOL/L (99-107); CREATININE 0.64 MG/DL (0.60-1.10); GLUCOSE 116 MG/DL (70-104); LIPASE 552 U/L (73-393); MAGNESIUM 1.6 MG/DL (1.5-2.4); SODIUM 136 MMOL/L (135-145); TOTAL CARBON DIOXIDE 26.9 MMOL/L (24-32); eGFR > 90 ML/MIN
[2019-04-22 07:06] LABS: ALBUMIN/GLOBULIN RATIO 0.7 (1.1-1.5); PHOSPHORUS 2.5 MG/DL (2.3-4.5); POTASSIUM 3.8 MMOL/L (3.5-5.1); TOTAL PROTEIN 5.5 G/DL (6.4-8.2); TRIGLYCERIDES 404 MG/DL (20-135)
[2019-04-22 07:38] LABS: BASOPHILS % (AUTO) 0.2 % (0-1); EOSINOPHILS # (AUTO) 0.1 X10'3 (0-0.9); EOSINOPHILS % (AUTO) 0.6 % (0-6); HEMATOCRIT 39.8 % (42.0-52.0); HEMOGLOBIN 13.1 g/dl (14.0-17.9); LYMPHOCYTES # (AUTO) 0.8 X10'3 (1.1-4.8); LYMPHOCYTES % (AUTO) 5.7 % (21-51); MEAN CORPUSCULAR HEMOGLOBIN 27.7 PG (27.0-31.0); MEAN CORPUSCULAR VOLUME 83.8 FL (78-98); MEAN PLATELET VOLUME 8.8 FL (7.4-10.4); MONOCYTES # (AUTO) 0.7 X10'3 (0-0.9); MONOCYTES % (AUTO) 5.6 % (2-12); NEUTROPHILS # (AUTO) 11.6 X10'3 (1.8-7.7); NEUTROPHILS % (AUTO) 87.9 % (42-75); PLATELET COUNT 215 X10'3 (140-440); RED BLOOD COUNT 4.75 X10'6 (4.70-6.10); RED CELL DISTRIBUTION WIDTH 16.4 % (11.5-14.5); WHITE BLOOD COUNT 13.2 X10'3 (4.5-11.0)
[2019-04-22] MEDS: K and/or MAG REPLACEMENT MC SCH ×2 (08:00→20:00)
[2019-04-22] MEDS: omega-3 acid ethyl esters 1GM capsule PO SCH ×2 (08:00→20:38)
[2019-04-22] MEDS: heparin, porcine 5000 units/ml vial SQ SCH (08:00)
[2019-04-22] MEDS: cefepime 1GM in D5W 50mL 50 ML IV SCH (08:11)
[2019-04-22] MEDS: gemfibrozil 600mg tablet PO SCH ×2 (08:11→20:37)
[2019-04-22] MEDS: fenofibrate 145mg tablet PO SCH (08:12)
[2019-04-22] MEDS: clopidogrel 75mg tablet PO SCH (08:12)
[2019-04-22] MEDS: pantoprazole 40mg Tablet.DR PO SCH (08:12)
[2019-04-22] MEDS: metroNIDAZOLE 500mg tablet PO SCH ×3 (08:12→23:51)
[2019-04-22] MEDS: carVEDilol 3.125mg tablet PO SCH ×2 (08:12→20:38)
[2019-04-22] MEDS: sodium bicarbonate 650mg tablet PO SCH ×3 (08:12→20:37)
[2019-04-22] MEDS: lactobacillus rhamnosus 10,000 MMU CELLS/CAPSULE PO SCH ×2 (08:12→20:37)
[2019-04-22] MEDS: atorvastatin 20mg tablet PO SCH (08:13)
[2019-04-22] MEDS: aspirin 81mg tab.chew PO SCH (08:30)
--- NOTE | 2019-04-22 10:42 | NUR ---
patient taken to clam bed laborer
[2019-04-22] MEDS ORDERED: verapamil 2.5 mg/ml inj IV ONE (10:44)
[2019-04-22] MEDS ORDERED: iohexol 350MG/ML 100ml bottle IV ONE ×2 (10:45→11:14)
[2019-04-22] MEDS ORDERED: heparin 1,000unit/ml 10ml vial 10 ML ONE (10:45)
[2019-04-22] MEDS ORDERED: LIDOcaine 1% (10mg/ml)w/preservative injection 20ml MDV ONE (10:45)
[2019-04-22] MEDS ORDERED: nitroGLYCERIN-Tridil 50MG/D5W 250 ML IV ONE (10:45)
[2019-04-22] MEDS ORDERED: midazolam 2 mg/2 ml injection ONE (10:46)
[2019-04-22] MEDS ORDERED: fentaNYL/PF 50MCG/1 ML 2ML syringe ONE (10:46)
[2019-04-22] MEDS ORDERED: proCHLORperazine 10 MG/2 ml inj ONE (10:46)
[2019-04-22] MEDS ORDERED: clopidogrel 300mg tablet ONE (11:53)
--- NOTE | 2019-04-22 12:05 | NUR ---
Patient returned from cath. Radial approach done, stents placed in RCA and LAD. Per chemical lab supervisor report, first release of air will be at 1445. Site shows no bleeding, post op vital signs initiated. BP 145/83, O2 92, HR 101, RR 18, no complaints of pain. Will monitor closely Addendum: 04/22/19 at 1222 by Yancy Sanchez RN * per Kiki Webber/Edna plavix order because he is on Brilinta s/p chemical lab supervisor. Dr Cancino also placed discharge medication orders that are placed in the front of the chart for when patient discharges
[2019-04-22] MEDS ORDERED: ondansetron/PF 4mg/2ml inj IV PRN (12:30)
[2019-04-22] MEDS ORDERED: proCHLORperazine 10 MG/2 ml inj IV PRN (12:30)
[2019-04-22] MEDS ORDERED: HYDROcodone/acetaminophen 5mg/325mg tablet PO PRN (12:30)
[2019-04-22] MEDS ORDERED: OXAZEpam 15mg capsule PO PRN (12:30)
[2019-04-22] MEDS ORDERED: HYDROcodone/acetaminophen 10/325mg tab PO PRN (12:30)
[2019-04-22] MEDS ORDERED: ipratropium/albuterol 3ml nebule NEB PRN (14:55)
--- NOTE | 2019-04-22 15:00 | NUR ---
Reassessment: Pt PO 75-100% heart healthy and clear liquid meals. Placed on clear liquids s/p cardiac cath. LBM 04/20. TG down to 404 and lipase down to 552 today. Will monitor for return to solid foods and PO tolerance. Recommendations: 1. Diet advancement to low fat, carb controlled diet as medically indicated 2. Bowel care as needed 3. Weight per rx Addendum: 04/22/19 at [address] Amended: Links added.
--- NOTE | 2019-04-22 18:21 | NUR ---
Problems reprioritized. Patient report given, questions answered & plan of care reviewed with Felicia MCDERMOTT.
[2019-04-22] MEDS: insulin glargine (Lantus) pen - multi-dose SQ SCH (20:50)
[2019-04-22] MEDS: LORazepam 1 MG tablet PO PRN (21:20)
--- NOTE | 2019-04-23 01:40 | NUR ---
REFUSED 2099 ACCUCHECK AND COVERAGE
[2019-04-23 03:00] VITALS: BP 167/85
[2019-04-23] MEDS: nitroGLYCERIN 0.4mg/hour patch TD SCH (04:26)
[2019-04-23 05:35] LABS: BASOPHILS % (AUTO) 0.3 % (0-1); EOSINOPHILS # (AUTO) 0.1 X10'3 (0-0.9); EOSINOPHILS % (AUTO) 0.5 % (0-6); HEMATOCRIT 38.2 % (42.0-52.0); HEMOGLOBIN 12.6 g/dl (14.0-17.9); LYMPHOCYTES # (AUTO) 0.7 X10'3 (1.1-4.8); MEAN CORPUSCULAR HEMOGLOBIN 27.5 PG (27.0-31.0); MEAN CORPUSCULAR VOLUME 83.3 FL (78-98); MEAN PLATELET VOLUME 8.7 FL (7.4-10.4); MONOCYTES # (AUTO) 0.8 X10'3 (0-0.9); NEUTROPHILS % (AUTO) 88.2 % (42-75); PLATELET COUNT 228 X10'3 (140-440); RED BLOOD COUNT 4.59 X10'6 (4.70-6.10); RED CELL DISTRIBUTION WIDTH 16.5 % (11.5-14.5); WHITE BLOOD COUNT 13.6 X10'3 (4.5-11.0)
[2019-04-23 06:09] LABS: ALANINE AMINOTRANSFERASE 107 U/L (12-78); ALKALINE PHOSPHATASE 273 IU/L (46-116); ANION GAP 8 (8-16); ASPARTATE AMINO TRANSFERASE 112 U/L (10-37); BILIRUBIN,TOTAL 7.1 MG/DL (0.1-1.0); BLOOD UREA NITROGEN 13 MG/DL (7-18); BUN/CREATININE RATIO 19.1 (5.4-32.0); CALCIUM 8.3 MG/DL (8.5-10.1); CHLORIDE 99 MMOL/L (99-107); CREATININE 0.68 MG/DL (0.60-1.10); GLUCOSE 191 MG/DL (70-104); LIPASE 578 U/L (73-393); MAGNESIUM 1.7 MG/DL (1.5-2.4); SODIUM 133 MMOL/L (135-145); eGFR > 90 ML/MIN
[2019-04-23 06:30] VITALS: BP 136/85
[2019-04-23 06:54] LABS: ALBUMIN/GLOBULIN RATIO 0.6 (1.1-1.5); PHOSPHORUS 2.5 MG/DL (2.3-4.5); TOTAL PROTEIN 5.4 G/DL (6.4-8.2); TRIGLYCERIDES 312 MG/DL (20-135)
[2019-04-23] MEDS ORDERED: potassium Cl 20 mEq SR tablet PO STA (07:16)
[2019-04-23] MEDS ORDERED: furosemide 40mg/4ml inj IV ONE (07:20)
[2019-04-23] MEDS: cefepime 1GM in D5W 50mL 50 ML IV SCH (07:47)
[2019-04-23] MEDS: omega-3 acid ethyl esters 1GM capsule PO SCH ×2 (07:47→21:44)
[2019-04-23] MEDS: gemfibrozil 600mg tablet PO SCH ×2 (07:47→21:44)
[2019-04-23] MEDS: sodium bicarbonate 650mg tablet PO SCH ×3 (07:47→21:44)
[2019-04-23] MEDS: aspirin 81mg tab.chew PO SCH (07:48)
[2019-04-23] MEDS: lactobacillus rhamnosus 10,000 MMU CELLS/CAPSULE PO SCH ×2 (07:48→21:44)
[2019-04-23] MEDS: fenofibrate 145mg tablet PO SCH (07:48)
[2019-04-23] MEDS: atorvastatin 20mg tablet PO SCH (07:48)
[2019-04-23] MEDS: carVEDilol 3.125mg tablet PO SCH ×2 (07:48→21:45)
[2019-04-23] MEDS: metroNIDAZOLE 500mg tablet PO SCH ×2 (07:48→16:00)
[2019-04-23] MEDS: pantoprazole 40mg Tablet.DR PO SCH (07:48)
[2019-04-23] MEDS: K and/or MAG REPLACEMENT MC SCH ×2 (08:00→21:21)
[2019-04-23] MEDS: insulin Lispro (HumaLOG) vial - multi-dose SQ SCH ×3 (08:46→21:40)
[2019-04-23 11:00] VITALS: BP 138/86
--- NOTE | 2019-04-23 11:09 | NUR ---
Paged RT Ambar Villarreal. [phone]. Patient requesting breathing treatment. Thank you!
--- NOTE | 2019-04-23 12:00 | NUR ---
Per Dr Butler, he spoke to Dr Walsh to consult. Orders for MCRP placed, and per Marycruz in MRI, patient is to be COMPLETELY NPO for at least 6 hours (no ice chips, no water either)
[2019-04-23] MEDS: morphine 2 MG/ML inj. syringe IV PRN ×4 (13:44→21:59)
[2019-04-23] MEDS: furosemide 40mg/4ml inj IV SCH (16:00)
--- NOTE | 2019-04-23 16:31 | NUR ---
DM Consult: DM ed done by ANTONINO this admit; see prior ANTONINO note. Addendum: 04/23/19 at [address] Amended: Links added.
--- NOTE | 2019-04-23 17:59 | NUR ---
Paged Dr Butler PAGER ID: [phone] MESSAGE: Yancy MOYA. Yane Villarreal [id number]. MCRP resulted; patient is asking if he can eat. Thank you
--- NOTE | 2019-04-23 18:26 | NUR ---
Problems reprioritized. Patient report given, questions answered & plan of care reviewed with Cailin MCDERMOTT.
[2019-04-23 18:30] VITALS: BP 151/91
--- NOTE | 2019-04-23 18:35 | NUR ---
Patient in room PCU 3022. I have received report from Yancy MCDERMOTT and had the opportunity to ask questions and assume patient care.
[2019-04-23] MEDS: insulin glargine (Lantus) pen - multi-dose SQ SCH (21:40)
[2019-04-23] MEDS: ticagrelor 90mg tablet PO SCH (21:45)
[2019-04-23 22:30] VITALS: BP 143/88
[2019-04-24] MEDS: metroNIDAZOLE 500mg tablet PO SCH ×4 (00:47→23:34)
[2019-04-24] MEDS: furosemide 40mg/4ml inj IV SCH ×4 (00:47→23:34)
[2019-04-24] MEDS: morphine 2 MG/ML inj. syringe IV PRN ×4 (00:48→07:52)
[2019-04-24 02:30] VITALS: BP 158/84
[2019-04-24 05:20] LABS: BASOPHILS # (AUTO) 0.1 X10'3 (0-0.2); BASOPHILS % (AUTO) 0.7 % (0-1); EOSINOPHILS # (AUTO) 0.2 X10'3 (0-0.9); EOSINOPHILS % (AUTO) 1.7 % (0-6); HEMATOCRIT 36.3 % (42.0-52.0); HEMOGLOBIN 12.1 g/dl (14.0-17.9); LYMPHOCYTES # (AUTO) 0.8 X10'3 (1.1-4.8); LYMPHOCYTES % (AUTO) 5.4 % (21-51); MEAN CORPUSCULAR HEMOGLOBIN 27.9 PG (27.0-31.0); MEAN CORPUSCULAR HGB CONC 33.4 g/dL (33.0-36.5); MEAN CORPUSCULAR VOLUME 83.5 FL (78-98); MEAN PLATELET VOLUME 8.5 FL (7.4-10.4); MONOCYTES # (AUTO) 1.2 X10'3 (0-0.9); MONOCYTES % (AUTO) 8.5 % (2-12); NEUTROPHILS # (AUTO) 11.8 X10'3 (1.8-7.7); NEUTROPHILS % (AUTO) 83.7 % (42-75); PLATELET COUNT 252 X10'3 (140-440); RED BLOOD COUNT 4.35 X10'6 (4.70-6.10); RED CELL DISTRIBUTION WIDTH 16.5 % (11.5-14.5); WHITE BLOOD COUNT 14.2 X10'3 (4.5-11.0)
[2019-04-24 05:39] LABS: ALANINE AMINOTRANSFERASE 79 U/L (12-78); ALBUMIN 2.1 G/DL (3.4-5.0); ALBUMIN/GLOBULIN RATIO 0.6 (1.1-1.5); ALKALINE PHOSPHATASE 294 IU/L (46-116); ANION GAP 8 (8-16); ASPARTATE AMINO TRANSFERASE 66 U/L (10-37); BLOOD UREA NITROGEN 13 MG/DL (7-18); BUN/CREATININE RATIO 16.5 (5.4-32.0); CALCIUM 8.2 MG/DL (8.5-10.1); CHLORIDE 96 MMOL/L (99-107); CREATININE 0.79 MG/DL (0.60-1.10); GLUCOSE 216 MG/DL (70-104); LIPASE 623 U/L (73-393); PHOSPHORUS 2.3 MG/DL (2.3-4.5); POTASSIUM 3.5 MMOL/L (3.5-5.1); SODIUM 132 MMOL/L (135-145); TOTAL CARBON DIOXIDE 28.1 MMOL/L (24-32); TOTAL PROTEIN 5.8 G/DL (6.4-8.2); TRIGLYCERIDES 286 MG/DL (20-135); eGFR > 90 ML/MIN
[2019-04-24] MEDS: nitroGLYCERIN 0.4mg/hour patch TD SCH (05:51)
--- NOTE | 2019-04-24 06:03 | NUR ---
Problems reprioritized. Patient report given, questions answered & plan of care reviewed with Yancy MCDERMOTT.
--- NOTE | 2019-04-24 06:28 | NUR ---
Patient in room PCU 3023B. I have received report from Cailin MCDERMOTT and had the opportunity to ask questions and assume patient care.
[2019-04-24 06:30] VITALS: BP 123/75
[2019-04-24] MEDS: cefepime 1GM in D5W 50mL 50 ML IV SCH (07:51)
[2019-04-24] MEDS: omega-3 acid ethyl esters 1GM capsule PO SCH ×2 (07:52→21:45)
[2019-04-24] MEDS: lactobacillus rhamnosus 10,000 MMU CELLS/CAPSULE PO SCH ×2 (07:52→21:45)
[2019-04-24] MEDS: fenofibrate 145mg tablet PO SCH (07:52)
[2019-04-24] MEDS: sodium bicarbonate 650mg tablet PO SCH ×3 (07:52→21:44)
[2019-04-24] MEDS: atorvastatin 20mg tablet PO SCH (07:52)
[2019-04-24] MEDS: aspirin 81mg tab.chew PO SCH (07:52)
[2019-04-24] MEDS: carVEDilol 3.125mg tablet PO SCH ×2 (07:53→21:45)
[2019-04-24] MEDS: K and/or MAG REPLACEMENT MC SCH ×2 (08:00→18:29)
[2019-04-24] MEDS: pantoprazole 40mg Tablet.DR PO SCH (08:01)
[2019-04-24] MEDS: insulin Lispro (HumaLOG) vial - multi-dose SQ SCH ×3 (09:18→19:33)
[2019-04-24 11:00] VITALS: BP 125/73
--- NOTE | 2019-04-24 16:33 | NUR ---
Dr Walsh came and consulted patient. Stated that he will reevaluate tomorrow as well. For now, patient can stay full liquid diet and then advance to heart healthy/carb controlled as tolerated. No need for NPO at midnight for tomorrow. Will [facility] [place] nursing order for diet
[2019-04-24 18:00] VITALS: BP 147/84
--- NOTE | 2019-04-24 18:30 | NUR ---
Patient in room PCU 3023. I have received report from Yancy MCDERMOTT and had the opportunity to ask questions and assume patient care.
--- NOTE | 2019-04-24 18:39 | NUR ---
Problems reprioritized. Patient report given, questions answered & plan of care reviewed with Cailin MCDERMOTT.
[2019-04-24] MEDS: ticagrelor 90mg tablet PO SCH (21:45)
[2019-04-24] MEDS: insulin glargine (Lantus) pen - multi-dose SQ SCH (21:57)
[2019-04-24 22:00] VITALS: BP 157/83
--- NOTE | 2019-04-24 22:11 | NUR ---
patient had a small BM, reported blood in the toilet. found small amount of bright red blood in the toilet. checked his anus, found hemorrhoids but no active bleeding. No blood from penis, but found a small scratch on the right side of the scrotum. wasn't actively bleeding, will continue to monitor
[2019-04-24] MEDS: ondansetron/PF 4mg/2ml inj IV PRN (23:43)
[2019-04-25 02:00] VITALS: BP 97/56
[2019-04-25] MEDS: morphine 2 MG/ML inj. syringe IV PRN (02:19)
--- NOTE | 2019-04-25 06:18 | NUR ---
Problems reprioritized. Patient report given, questions answered & plan of care reviewed with Mindi MCDERMOTT.
[2019-04-25 06:20] LABS: BASOPHILS % (AUTO) 0.2 % (0-1); EOSINOPHILS # (AUTO) 0.3 X10'3 (0-0.9); HEMOGLOBIN 11.5 g/dl (14.0-17.9); LYMPHOCYTES # (AUTO) 1.2 X10'3 (1.1-4.8); MEAN CORPUSCULAR HEMOGLOBIN 27.9 PG (27.0-31.0); MEAN CORPUSCULAR HGB CONC 33.9 g/dL (33.0-36.5); MEAN CORPUSCULAR VOLUME 82.3 FL (78-98); MEAN PLATELET VOLUME 8.5 FL (7.4-10.4); MONOCYTES # (AUTO) 1.4 X10'3 (0-0.9); MONOCYTES % (AUTO) 10.5 % (2-12); NEUTROPHILS # (AUTO) 10.6 X10'3 (1.8-7.7); NEUTROPHILS % (AUTO) 78.3 % (42-75); PLATELET COUNT 283 X10'3 (140-440); RED BLOOD COUNT 4.13 X10'6 (4.70-6.10); RED CELL DISTRIBUTION WIDTH 16.3 % (11.5-14.5); WHITE BLOOD COUNT 13.6 X10'3 (4.5-11.0)
[2019-04-25 06:30] LABS: ALANINE AMINOTRANSFERASE 63 U/L (12-78); ALBUMIN/GLOBULIN RATIO 0.5 (1.1-1.5); ALKALINE PHOSPHATASE 308 IU/L (46-116); ANION GAP 6 (8-16); ASPARTATE AMINO TRANSFERASE 61 U/L (10-37); BILIRUBIN,TOTAL 1.7 MG/DL (0.1-1.0); BLOOD UREA NITROGEN 12 MG/DL (7-18); BUN/CREATININE RATIO 16.4 (5.4-32.0); CHLORIDE 96 MMOL/L (99-107); CREATININE 0.73 MG/DL (0.60-1.10); GLUCOSE 168 MG/DL (70-104); LIPASE 629 U/L (73-393); PHOSPHORUS 2.9 MG/DL (2.3-4.5); POTASSIUM 3.2 MMOL/L (3.5-5.1); SODIUM 132 MMOL/L (135-145); TOTAL CARBON DIOXIDE 29.7 MMOL/L (24-32); TOTAL PROTEIN 5.8 G/DL (6.4-8.2); eGFR > 90 ML/MIN
--- NOTE | 2019-04-25 06:50 | NUR ---
Patient in room PCU 3023. I have received report from SHARRON Simeon and had the opportunity to ask questions and assume patient care. Patient asleep in bed and in no acute distress.
[2019-04-25 07:00] VITALS: BP 139/73
[2019-04-25] MEDS: lactobacillus rhamnosus 10,000 MMU CELLS/CAPSULE PO SCH (07:35)
[2019-04-25] MEDS: cefepime 1GM in D5W 50mL 50 ML IV SCH (07:35)
[2019-04-25] MEDS: carVEDilol 3.125mg tablet PO SCH (07:36)
[2019-04-25] MEDS: atorvastatin 20mg tablet PO SCH (07:36)
[2019-04-25] MEDS: sodium bicarbonate 650mg tablet PO SCH ×2 (07:36→12:41)
[2019-04-25] MEDS: metroNIDAZOLE 500mg tablet PO SCH (07:36)
[2019-04-25] MEDS: pantoprazole 40mg Tablet.DR PO SCH (07:36)
[2019-04-25] MEDS: omega-3 acid ethyl esters 1GM capsule PO SCH (07:37)
[2019-04-25 07:49] LABS: CALCIUM 8.6 MG/DL (8.5-10.1)
[2019-04-25] MEDS: aspirin 81mg tab.chew PO SCH (07:51)
[2019-04-25] MEDS: fenofibrate 145mg tablet PO SCH (07:51)
[2019-04-25] MEDS: insulin Lispro (HumaLOG) vial - multi-dose SQ SCH ×2 (07:55→13:45)
[2019-04-25] MEDS: K and/or MAG REPLACEMENT MC SCH (08:00)
[2019-04-25] MEDS: furosemide 40mg/4ml inj IV SCH (09:59)
[2019-04-25] MEDS ORDERED: potassium Cl 20 mEq SR tablet PO PRN ×2 (10:55)
[2019-04-25] MEDS ORDERED: potassium CL 10mEq/100ml bag 100 ML IV PRN (10:55)
[2019-04-25] MEDS ORDERED: magnesium 4gm in 100ml NS 100 ML IV PRN (10:55)
[2019-04-25] MEDS ORDERED: magnesium Cl slow-release 64mg tablet PO PRN (10:55)
[2019-04-25 11:00] VITALS: BP 109/66
--- NOTE | 2019-04-25 11:43 | NUR ---
Advanced diet to heart healthy and carb controlled per Dr. Walsh.
[2019-04-25] MEDS ORDERED: OMEG1CAP PO (12:25)
[2019-04-25] MEDS ORDERED: TICA90TA PO (12:25)
[2019-04-25] MEDS ORDERED: ATOR20TA66 PO (12:25)
[2019-04-25] MEDS ORDERED: NITR0.4T51 SL (12:25)
[2019-04-25] MEDS ORDERED: FENO145T25 PO (12:25)
[2019-04-25] MEDS ORDERED: ASPI-1265 PO (12:25)
[2019-04-25] MEDS ORDERED: COR3.125T PO (12:25)
[2019-04-25] MEDS ORDERED: PANT40TA4 PO (12:25)
[2019-04-25] MEDS ORDERED: LACT1CAP26 PO (12:25)
[2019-04-25] MEDS ORDERED: SITA100T11 PO (12:25)
[2019-04-25] MEDS ORDERED: FURO-150 PO (12:32)
[2019-04-25] MEDS ORDERED: POTA20TA19 PO (12:32)
[2019-04-25] MEDS ORDERED: potassium Cl 20 mEq SR tablet PO STA (12:35)
[2019-04-25] MEDS ORDERED: CEFD300C3 PO (12:35)
--- NOTE | 2019-04-25 12:36 | NUR ---
Ordered one time dose of K-Dur 40mEq before patient is discharged per Dr. Butler.
[2019-04-25] MEDS ORDERED: AZIT500T9 PO (12:37)
--- NOTE | 2019-04-25 15:14 | NUR ---
Patient stable for discharge per MD orders. All discharge instructions reviewed with patient and questions answered. Patient [place], and make own appointments. Coupon for Jacob sent with patient as well. Medication picked up from downstairs and sent home with patient. All new prescriptions were sent to [facility] electronically. PIV discontinued and cannula intact. surveillance supervisor discontinued. Belongings collected and sent with patient. Patient was picked up by private vehicle and wheeled down to the lobby.
== END 2019-04-25 15:13 | disposition home health service (06) | DRG 246 ==
LOC: ER 22:02 → ED HOLD 04-16 00:36 → SUR 3N 04-16 01:56 → PCU 3S 04-21 15:01
PROVIDERS: ADMIT Hospitalist; ATTEND Family Medicine
PROC: 4A02XM4 Measurement of Cardiac Total Activity, External Approach (ICD-10-PCS; 2019-04-21)
PROC: 3E033HZ Introduction of Radioactive Substance into Peripheral Vein, Percutaneous Approach (ICD-10-PCS; 2019-04-21)
PROC: 027135Z Dilation of Coronary Artery, Two Arteries with Two Drug-eluting Intraluminal Devices, Percutaneous Approach (ICD-10-PCS; principal; 2019-04-22)
PROC: 4A023N7 Measurement of Cardiac Sampling and Pressure, Left Heart, Percutaneous Approach (ICD-10-PCS; 2019-04-22)
PROC: B2111ZZ Fluoroscopy of Multiple Coronary Arteries using Low Osmolar Contrast (ICD-10-PCS; 2019-04-22)
PROC: B2151ZZ Fluoroscopy of Left Heart using Low Osmolar Contrast (ICD-10-PCS; 2019-04-22)
DX: I21.A1 Myocardial infarction type 2 (principal); J18.9 Pneumonia, unspecified organism; J96.90 Respiratory failure, unspecified, unspecified whether with hypoxia or hypercapnia; K85.80 Other acute pancreatitis without necrosis or infection; K85.10 Biliary acute pancreatitis without necrosis or infection; N17.0 Acute kidney failure with tubular necrosis; E87.2 Acidosis; J98.11 Atelectasis; K80.21 Calculus of gallbladder without cholecystitis with obstruction; K86.1 Other chronic pancreatitis; E87.1 Hypo-osmolality and hyponatremia; E11.9 Type 2 diabetes mellitus without complications; E78.1 Pure hyperglyceridemia; E78.5 Hyperlipidemia, unspecified; E87.5 Hyperkalemia; I10 Essential (primary) hypertension; I25.10 Atherosclerotic heart disease of native coronary artery without angina pectoris; J44.9 Chronic obstructive pulmonary disease, unspecified; Z95.5 Presence of coronary angioplasty implant and graft; Z79.82 Long term (current) use of aspirin; Z88.0 Allergy status to penicillin; Z79.899 Other long term (current) drug therapy; Z79.84 Long term (current) use of oral hypoglycemic drugs
CPT/HCPCS: 93306; 93458; 96374; 96375; 96376; 99285; C9600; C9601; 36415; 36600; 71045; 71046; 71250; 74176; 74181; 76775; 78452; 78582; 80048; 80053; 80061; 81001; 82803; 82948; 83036; 83605; 83690; 83735; 83880; 84100; 84478; 84484; 85018; 85025; 85730; 87081; 93005; 93017; 94640; 94760; 97116; 97161; 97530; 99152; 99153; A4620; A5120; A9500; A9539; A9540; C1725; C1769; C1874; C1894; C9113; G0378; J0280; J0692; J0780; J1644; J1815; J1940; J2001; J2250; J2270; J2405; J2785; J2920; J2930; J3010; J3370; J3490; J7030; J7040; Q9963; Q9967

== ENCOUNTER 2019-04-30 21:37 | Inpatient (IN) | payer BC ==
[~2019-04-30] VITALS: Ht 182.9 cm; Wt 106.8 kg
[~2019-04-30 21:37] MED LIST changes: +ASPI-1265 PO; +ATOR20TA66 PO; +AZIT500T9 PO; +CEFD300C3 PO; +COR3.125T PO; +FENO145T25 PO; +FURO-150 PO; -GEMF600T89 PO; +LACT1CAP26 PO; +NITR0.4T51 SL; +OMEG1CAP PO; +PANT40TA4 PO; +POTA20TA19 PO; +SITA100T11 PO; +TICA90TA PO
[2019-04-30] MEDS ORDERED: ondansetron/PF 4mg/2ml inj IV ONE (22:15)
[2019-04-30] MEDS ORDERED: normal saline 1000ML IV soln IVB ONE (22:15)
[2019-04-30] MEDS: morphine 4 MG/ML inj SYRINge IV PRN (22:22)
[2019-04-30 22:53] LABS: BASOPHILS # (AUTO) 0.1 X10'3 (0-0.2); EOSINOPHILS # (AUTO) 0.1 X10'3 (0-0.9); HEMOGLOBIN 12.6 g/dl (14.0-17.9); LYMPHOCYTES # (AUTO) 1.2 X10'3 (1.1-4.8); NEUTROPHILS # (AUTO) 12.9 X10'3 (1.8-7.7); WHITE BLOOD COUNT 15.2 X10'3 (4.5-11.0)
[2019-04-30 22:54] LABS: BASOPHILS % (AUTO) 0.7 % (0-1); EOSINOPHILS % (AUTO) 0.5 % (0-6); HEMATOCRIT 38.2 % (42.0-52.0); LYMPHOCYTES % (AUTO) 8.2 % (21-51); MEAN CORPUSCULAR HEMOGLOBIN 27.5 PG (27.0-31.0); MEAN CORPUSCULAR VOLUME 83.5 FL (78-98); MEAN PLATELET VOLUME 8.2 FL (7.4-10.4); MONOCYTES # (AUTO) 0.8 X10'3 (0-0.9); MONOCYTES % (AUTO) 5.5 % (2-12); NEUTROPHILS % (AUTO) 85.1 % (42-75); PLATELET COUNT 683 X10'3 (140-440); RED BLOOD COUNT 4.57 X10'6 (4.70-6.10)
[2019-04-30 22:58] LABS: PARTIAL THROMBOPLASTIN TIME 27 SECONDS (22-32)
[2019-04-30 23:01] LABS: ALANINE AMINOTRANSFERASE 36 U/L (12-78); ALBUMIN 2.3 G/DL (3.4-5.0); ALBUMIN/GLOBULIN RATIO 0.4 (1.1-1.5); ALKALINE PHOSPHATASE 238 IU/L (46-116); ANION GAP 11 (8-16); ASPARTATE AMINO TRANSFERASE 39 U/L (10-37); BILIRUBIN,TOTAL 1.1 MG/DL (0.1-1.0); BLOOD UREA NITROGEN 16 MG/DL (7-18); BUN/CREATININE RATIO 17.8 (5.4-32.0); CALCIUM 9.2 MG/DL (8.5-10.1); CHLORIDE 99 MMOL/L (99-107); GLUCOSE 129 MG/DL (70-104); LIPASE 1318 U/L (73-393); POTASSIUM 4.7 MMOL/L (3.5-5.1); SODIUM 131 MMOL/L (135-145); TOTAL CARBON DIOXIDE 20.8 MMOL/L (24-32); TOTAL PROTEIN 7.8 G/DL (6.4-8.2); eGFR 87 ML/MIN
[2019-04-30] MEDS ORDERED: normal saline 1000ML IV soln IV ONE (23:20)
[2019-04-30] MEDS ORDERED: levoFLOXACIN-Levaquin 500mg/D5 100 ML IV ONE (23:20)
[2019-04-30] MEDS ORDERED: metroNIDAZOLE-Flagyl 500mg/NS 100 ML IV ONE (23:20)
[2019-04-30] MEDS ORDERED: CANA300T PO (23:32)
[2019-04-30] MEDS ORDERED: METF500T PO (23:37)
[2019-04-30] MEDS ORDERED: GLIP10TA21 PO (23:37)
[2019-04-30] MEDS ORDERED: CLOP75TA35 PO (23:37)
[2019-04-30] MEDS ORDERED: FENO145T38 PO (23:37)
[2019-04-30] MEDS ORDERED: ROSU40TA PO (23:37)
[2019-04-30] MEDS ORDERED: CARV-49 PO (23:37)
[2019-04-30] MEDS ORDERED: LISI40TA4 PO (23:37)
[2019-04-30 23:52] LABS: ANISOCYTOSIS 1+; LARGE PLATELETS FEW; PLATELET ESTIMATE INCREASED; POLYCHROMASIA FEW; TOTAL CELLS COUNTED 100
[2019-05-01] MEDS: morphine 4 MG/ML inj SYRINge IV PRN (00:09)
[2019-05-01] MEDS ORDERED: normal saline 1000ML IV soln IVB ONE (00:55)
[2019-05-01] MEDS ORDERED: HYDROmorphone 1 mg/ml syringe IV ONE (01:15)
[2019-05-01] MEDS ORDERED: acetaminophen 325mg tablet PO PRN (01:50)
[2019-05-01] MEDS ORDERED: magnesium hydroxide 30ml (MOM) UD suspension PO PRN (01:50)
[2019-05-01] MEDS ORDERED: mag hydrox/Alum hydrox/simeth 30ml oral suspension PO PRN (01:50)
[2019-05-01] MEDS ORDERED: ondansetron/PF 4mg/2ml inj IV PRN (01:50)
[2019-05-01] MEDS ORDERED: naloxone 0.4 mg/ml inj IV PRN (01:55)
[2019-05-01] MEDS ORDERED: CADD PCA waste documentation MC PRN (01:55)
[2019-05-01] MEDS ORDERED: MESSAGE TO PHARMACY PO ONE (02:00)
[2019-05-01] MEDS ORDERED: insulin Lispro (HumaLOG) vial - multi-dose SQ SCH (02:00)
[2019-05-01] MEDS ORDERED: glucagon, human recombinant 1mg kit SUBCUT PRN (02:00)
[2019-05-01] MEDS ORDERED: dextrose ORAL solution 15 GM/59 ML bottle PO PRN ×2 (02:00)
[2019-05-01] MEDS ORDERED: dextrose 50%-water 50ml dispensing syringe IV PRN ×2 (02:00)
[2019-05-01] MEDS: normal saline 1000ml 1,000 ML IV SCH ×2 (02:27→11:57)
[2019-05-01] MEDS ORDERED: ATOR20TA66 PO (02:53)
[2019-05-01] MEDS: HYDROmorphone/NS 1 mg/ml CADD 50 ML IV SCH ×11 (04:10→23:00)
[2019-05-01 05:28] LABS: CLARITY,URINE CLEAR (Clear); COLOR,URINE YELLOW (Yellow); GLUCOSE, URINE >=1000 mg/dl (Neg); KETONES,URINE NEGATIVE (Neg); LEUKOCYTE ESTERASE ,URINE NEGATIVE (Neg); NITRITES, URINE NEGATIVE (Neg); OCCULT BLOOD,URINE NEGATIVE (Neg); PH,URINE 5.5 (4.8-8.0); PROTEIN,URINE TRACE mg/dl (Neg); UROBILINOGEN,URINE 0.2 E.U/dL (0.2-1.0)
[2019-05-01 05:46] LABS: UA COLLECTION TYPE CLN CATCH MIDSTREAM
[2019-05-01 05:47] LABS: SQUAMOUS EPITHELIAL CELL,UR FEW /LPF (FEW)
[2019-05-01 05:48] LABS: BACTERIA,URINE 1+ /HPF (Neg); RBC,URINE 0-2 /HPF (0-2)
[2019-05-01 07:00] VITALS: BP 116/69
[2019-05-01] MEDS: levoFLOXACIN-Levaquin 500mg/D5 100 ML IV SCH (07:28)
[2019-05-01] MEDS: fenofibrate 145mg tablet PO SCH (08:00)
[2019-05-01] MEDS: heparin, porcine 5000 units/ml vial SQ SCH ×2 (08:00→20:33)
[2019-05-01] MEDS ORDERED: lisinopril 20mg tablet PO SCH (08:00)
[2019-05-01] MEDS: atorvastatin 20mg tablet PO SCH (08:00)
[2019-05-01] MEDS: clopidogrel 75mg tablet PO SCH ×2 (08:00→12:50)
[2019-05-01] MEDS: carVEDilol 3.125mg tablet PO SCH ×2 (08:54→20:33)
[2019-05-01] MEDS: metroNIDAZOLE-Flagyl 500mg/NS 100 ML IV SCH ×2 (08:54→16:21)
[2019-05-01 11:01] VITALS: BP 122/74
[2019-05-01] MEDS: dextrose 5%-normal saline 1,000 ML IV SCH ×2 (12:50→22:23)
[2019-05-01 13:39] LABS: LIPASE 980 U/L (73-393); TRIGLYCERIDES 120 MG/DL (20-135)
--- NOTE | 2019-05-01 16:16 | NUR ---
DM consult: Pt with A1c 8.8. Pt recently admitted and seen by ANTONINO 04/20/2019 where pt and SO were provided with written DM education with referral to outpatient DM class, high triglyceride nutrition therapy, heart healthy consistent carbohydrate nutrition therapy, and pancreatitis nutrition therapy education handouts with verbal review of all. No further education warranted at this time. Will continue to follow. Addendum: 05/01/19 at 1616 by [address] RD Amended: Links added.
[2019-05-01 18:00] VITALS: BP 135/61
--- NOTE | 2019-05-01 18:22 | NUR ---
Problems reprioritized. Patient report given, questions answered & plan of care reviewed with SHARRON Zepeda.
--- NOTE | 2019-05-01 18:53 | NUR ---
Patient in room [facility] 347. I have received report from Hetal MCDERMOTT and had the opportunity to ask questions and assume patient care.
[2019-05-01] MEDS ORDERED: atorvastatin 20mg tablet PO SCH (21:00)
[2019-05-01] MEDS: insulin glargine (Lantus) pen - multi-dose SQ SCH (21:00)
[2019-05-02] VITALS: BP 135/85
[2019-05-02] MEDS: metroNIDAZOLE-Flagyl 500mg/NS 100 ML IV SCH ×3 (00:13→16:03)
[2019-05-02] MEDS: HYDROmorphone/NS 1 mg/ml CADD 50 ML IV SCH ×12 (01:00→23:00)
[2019-05-02 05:52] LABS: BASOPHILS # (AUTO) 0.2 X10'3 (0-0.2); BASOPHILS % (AUTO) 1.1 % (0-1); EOSINOPHILS # (AUTO) 0.1 X10'3 (0-0.9); EOSINOPHILS % (AUTO) 0.8 % (0-6); HEMATOCRIT 33.1 % (42.0-52.0); HEMOGLOBIN 10.7 g/dl (14.0-17.9); LYMPHOCYTES % (AUTO) 6.3 % (21-51); MEAN CORPUSCULAR HEMOGLOBIN 26.9 PG (27.0-31.0); MEAN CORPUSCULAR HGB CONC 32.4 g/dL (33.0-36.5); MEAN CORPUSCULAR VOLUME 82.9 FL (78-98); MEAN PLATELET VOLUME 8.1 FL (7.4-10.4); MONOCYTES # (AUTO) 1.3 X10'3 (0-0.9); MONOCYTES % (AUTO) 8.4 % (2-12); NEUTROPHILS # (AUTO) 13.2 X10'3 (1.8-7.7); NEUTROPHILS % (AUTO) 83.4 % (42-75); PLATELET COUNT 548 X10'3 (140-440); RED BLOOD COUNT 3.99 X10'6 (4.70-6.10); RED CELL DISTRIBUTION WIDTH 16.8 % (11.5-14.5); WHITE BLOOD COUNT 15.8 X10'3 (4.5-11.0)
[2019-05-02 06:21] LABS: ALANINE AMINOTRANSFERASE 25 U/L (12-78); ALBUMIN 1.7 G/DL (3.4-5.0); ALBUMIN/GLOBULIN RATIO 0.4 (1.1-1.5); ALKALINE PHOSPHATASE 203 IU/L (46-116); ANION GAP 10 (8-16); ASPARTATE AMINO TRANSFERASE 35 U/L (10-37); BILIRUBIN,TOTAL 0.7 MG/DL (0.1-1.0); BLOOD UREA NITROGEN 12 MG/DL (7-18); BUN/CREATININE RATIO 16.2 (5.4-32.0); CALCIUM 8.2 MG/DL (8.5-10.1); CHLORIDE 101 MMOL/L (99-107); CREATININE 0.74 MG/DL (0.60-1.10); GLUCOSE 146 MG/DL (70-104); LIPASE 704 U/L (73-393); POTASSIUM 4.4 MMOL/L (3.5-5.1); SODIUM 130 MMOL/L (135-145); TOTAL PROTEIN 6.4 G/DL (6.4-8.2); eGFR > 90 ML/MIN
--- NOTE | 2019-05-02 06:32 | NUR ---
Problems reprioritized. Patient report given, questions answered & plan of care reviewed with Hetal MCDERMOTT.Patient is resting.
--- NOTE | 2019-05-02 06:40 | NUR ---
Patient in room [facility] 347. I have received report from SHARRON Zepeda and had the opportunity to ask questions and assume patient care.
[2019-05-02 07:00] VITALS: BP 146/87
[2019-05-02] MEDS: levoFLOXACIN-Levaquin 500mg/D5 100 ML IV SCH (07:53)
[2019-05-02] MEDS: carVEDilol 3.125mg tablet PO SCH ×2 (07:53→21:10)
[2019-05-02] MEDS: atorvastatin 20mg tablet PO SCH (07:53)
[2019-05-02] MEDS: clopidogrel 75mg tablet PO SCH (07:54)
[2019-05-02] MEDS: fenofibrate 145mg tablet PO SCH (07:54)
[2019-05-02] MEDS: heparin, porcine 5000 units/ml vial SQ SCH ×2 (07:55→21:10)
[2019-05-02] MEDS: dextrose 5%-normal saline 1,000 ML IV SCH ×2 (07:57→19:06)
[2019-05-02 11:40] VITALS: BP 107/66
--- NOTE | 2019-05-02 18:30 | NUR ---
Problems reprioritized. Patient report given, questions answered & plan of care reviewed with SHARRON Cartagena.
[2019-05-02 20:00] VITALS: BP 145/84
[2019-05-02] MEDS: insulin glargine (Lantus) pen - multi-dose SQ SCH (21:00)
[2019-05-02] MEDS: lactobacillus rhamnosus 10,000 MMU CELLS/CAPSULE PO SCH (21:10)
--- NOTE | 2019-05-02 22:00 | NUR ---
Patient's Flu test came back negative. Patient informed and taken out of droplet precaution.
[2019-05-03] VITALS: BP 124/72
[2019-05-03] MEDS: metroNIDAZOLE-Flagyl 500mg/NS 100 ML IV SCH ×3 (00:57→15:25)
[2019-05-03] MEDS: HYDROmorphone/NS 1 mg/ml CADD 50 ML IV SCH ×4 (01:00→07:00)
[2019-05-03] MEDS: dextrose 5%-normal saline 1,000 ML IV SCH (05:01)
[2019-05-03 05:41] LABS: BASOPHILS # (AUTO) 0.1 X10'3 (0-0.2); EOSINOPHILS # (AUTO) 0.1 X10'3 (0-0.9); HEMOGLOBIN 10.4 g/dl (14.0-17.9); WHITE BLOOD COUNT 13.7 X10'3 (4.5-11.0)
[2019-05-03 05:42] LABS: EOSINOPHILS % (AUTO) 0.9 % (0-6); LYMPHOCYTES % (AUTO) 7.5 % (21-51); MEAN CORPUSCULAR HGB CONC 32.6 g/dL (33.0-36.5); MEAN CORPUSCULAR VOLUME 82.9 FL (78-98); MEAN PLATELET VOLUME 8.1 FL (7.4-10.4); MONOCYTES # (AUTO) 1.3 X10'3 (0-0.9); MONOCYTES % (AUTO) 9.6 % (2-12); NEUTROPHILS # (AUTO) 11.1 X10'3 (1.8-7.7); PLATELET COUNT 620 X10'3 (140-440); RED BLOOD COUNT 3.86 X10'6 (4.70-6.10); RED CELL DISTRIBUTION WIDTH 16.7 % (11.5-14.5)
[2019-05-03 05:52] LABS: ALANINE AMINOTRANSFERASE 20 U/L (12-78); ALBUMIN 1.6 G/DL (3.4-5.0); ALBUMIN/GLOBULIN RATIO 0.3 (1.1-1.5); ALKALINE PHOSPHATASE 204 IU/L (46-116); ANION GAP 8 (8-16); ASPARTATE AMINO TRANSFERASE 33 U/L (10-37); BILIRUBIN,TOTAL 0.6 MG/DL (0.1-1.0); BLOOD UREA NITROGEN 7 MG/DL (7-18); BUN/CREATININE RATIO 10.9 (5.4-32.0); CALCIUM 8.2 MG/DL (8.5-10.1); CHLORIDE 100 MMOL/L (99-107); CREATININE 0.64 MG/DL (0.60-1.10); GLUCOSE 184 MG/DL (70-104); LIPASE 624 U/L (73-393); SODIUM 130 MMOL/L (135-145); TOTAL CARBON DIOXIDE 21.7 MMOL/L (24-32); TOTAL PROTEIN 6.4 G/DL (6.4-8.2); eGFR > 90 ML/MIN
[2019-05-03 07:00] VITALS: BP 126/82
--- NOTE | 2019-05-03 07:01 | NUR ---
Patient in room [facility] 347. I have received report from Shelby MCDERMOTT and had the opportunity to ask questions and assume patient care.
[2019-05-03] MEDS: lactobacillus rhamnosus 10,000 MMU CELLS/CAPSULE PO SCH ×2 (07:56→19:58)
[2019-05-03] MEDS: fenofibrate 145mg tablet PO SCH (07:56)
[2019-05-03] MEDS: clopidogrel 75mg tablet PO SCH (07:57)
[2019-05-03] MEDS: atorvastatin 20mg tablet PO SCH (07:57)
[2019-05-03] MEDS: carVEDilol 3.125mg tablet PO SCH ×2 (07:57→19:58)
[2019-05-03] MEDS: heparin, porcine 5000 units/ml vial SQ SCH ×2 (07:57→19:58)
[2019-05-03] MEDS: levoFLOXACIN-Levaquin 500mg/D5 100 ML IV SCH (10:45)
[2019-05-03] MEDS ORDERED: HYDROmorphone 2mg tablet PO PRN (10:55)
[2019-05-03] MEDS ORDERED: HYDROmorphone inj. 0.5 MG/0.5 ML DISP.SYRIN IV PRN (10:55)
[2019-05-03 11:00] VITALS: BP 140/93
[2019-05-03] MEDS: HYDROmorphone 1 mg/ml syringe IV PRN ×3 (11:37→22:50)
--- NOTE | 2019-05-03 18:14 | NUR ---
patient seen by Dr Christian, advanced to carb count diet. Dilaudid CADD DC patient given one dose of dilaudid IV with effect .Fluids DC. patient encouraged to drink. Family present at bedside.Report given to Mitzi MCDERMOTT
[2019-05-03 20:00] VITALS: BP 129/80
[2019-05-03] MEDS ORDERED: morphine IR (immed. release) 30mg tablet PO PRN (20:35)
[2019-05-03] MEDS: insulin glargine (Lantus) pen - multi-dose SQ SCH (22:56)
[2019-05-04] VITALS: BP 139/85
[2019-05-04] MEDS: metroNIDAZOLE-Flagyl 500mg/NS 100 ML IV SCH ×2 (02:07→09:30)
--- NOTE | 2019-05-04 02:30 | NUR ---
Patient upset the entire night because his CADD pump got discontinued. He states that it was working so good, he took his pain away. Nurse explained to patient pain management by rotating his dilaudid IV with his PO morphine. Patient states it is not as effective as the CADD. He states he is talk to the morning doctor. Nurse tried explaining to patient that the goal is to make his pain tolerable, not take his pain away. He continues to states but the CADD worked so well with my pain, I just don't want to suffer. Continue with current POC.
[2019-05-04] MEDS: HYDROmorphone 1 mg/ml syringe IV PRN ×2 (03:31→07:29)
[2019-05-04 04:21] LABS: ALANINE AMINOTRANSFERASE 20 U/L (12-78); ALBUMIN 1.6 G/DL (3.4-5.0); ALBUMIN/GLOBULIN RATIO 0.4 (1.1-1.5); ALKALINE PHOSPHATASE 216 IU/L (46-116); ANION GAP 5 (8-16); ASPARTATE AMINO TRANSFERASE 31 U/L (10-37); BILIRUBIN,TOTAL 0.6 MG/DL (0.1-1.0); BLOOD UREA NITROGEN 6 MG/DL (7-18); BUN/CREATININE RATIO 9.8 (5.4-32.0); CALCIUM 8.4 MG/DL (8.5-10.1); CHLORIDE 99 MMOL/L (99-107); CREATININE 0.61 MG/DL (0.60-1.10); GLUCOSE 107 MG/DL (70-104); LIPASE 611 U/L (73-393); POTASSIUM 4.1 MMOL/L (3.5-5.1); SODIUM 131 MMOL/L (135-145); TOTAL PROTEIN 6.1 G/DL (6.4-8.2); eGFR > 90 ML/MIN
[2019-05-04 04:25] LABS: EOSINOPHILS # (AUTO) 0.1 X10'3 (0-0.9); HEMOGLOBIN 10.2 g/dl (14.0-17.9)
[2019-05-04 04:26] LABS: BASOPHILS # (AUTO) 0.1 X10'3 (0-0.2); BASOPHILS % (AUTO) 1.1 % (0-1); EOSINOPHILS % (AUTO) 1.1 % (0-6); HEMATOCRIT 30.7 % (42.0-52.0); LYMPHOCYTES % (AUTO) 8.1 % (21-51); MEAN CORPUSCULAR HEMOGLOBIN 27.2 PG (27.0-31.0); MEAN CORPUSCULAR VOLUME 82.3 FL (78-98); MEAN PLATELET VOLUME 7.8 FL (7.4-10.4); MONOCYTES % (AUTO) 8.5 % (2-12); NEUTROPHILS # (AUTO) 9.7 X10'3 (1.8-7.7); NEUTROPHILS % (AUTO) 81.2 % (42-75); PLATELET COUNT 642 X10'3 (140-440); RED BLOOD COUNT 3.74 X10'6 (4.70-6.10); RED CELL DISTRIBUTION WIDTH 16.8 % (11.5-14.5)
--- NOTE | 2019-05-04 06:12 | NUR ---
Patient in room [facility] 348. I have received report from Mitzi MDCERMOTT and had the opportunity to ask questions and assume patient care.
[2019-05-04 07:00] VITALS: BP 147/95
[2019-05-04] MEDS: levoFLOXACIN-Levaquin 500mg/D5 100 ML IV SCH (07:33)
[2019-05-04] MEDS: carVEDilol 3.125mg tablet PO SCH (07:34)
[2019-05-04] MEDS: clopidogrel 75mg tablet PO SCH (07:34)
[2019-05-04] MEDS: heparin, porcine 5000 units/ml vial SQ SCH (07:34)
[2019-05-04] MEDS: fenofibrate 145mg tablet PO SCH (07:34)
[2019-05-04] MEDS: atorvastatin 20mg tablet PO SCH (07:34)
[2019-05-04] MEDS: lactobacillus rhamnosus 10,000 MMU CELLS/CAPSULE PO SCH (07:34)
[2019-05-04] MEDS ORDERED: LEVO500T89 PO (13:19)
[2019-05-04] MEDS ORDERED: MORP15TA PO (13:19)
[2019-05-04] MEDS ORDERED: METR-159 PO (13:19)
--- NOTE | 2019-05-04 15:23 | NUR ---
patient seen by Dr Sierra, is for discharge. All discharge instructions given to patient. prescription for morphine po handed to patient. Appears stable for DC. patient accompanied by son, to home via private vehicle.
== END 2019-05-04 14:19 | disposition home or self-care (01) | DRG 871 ==
LOC: ER 21:37 → ED HOLD 05-01 01:48 → SUR 3N 05-01 07:04
PROVIDERS: ADMIT Internal Medicine; ATTEND Hospitalist
DX: A41.9 Sepsis, unspecified organism (principal); K65.1 Peritoneal abscess; K85.90 Acute pancreatitis without necrosis or infection, unspecified; J18.9 Pneumonia, unspecified organism; R18.8 Other ascites; E11.9 Type 2 diabetes mellitus without complications; E78.1 Pure hyperglyceridemia; G89.29 Other chronic pain; I10 Essential (primary) hypertension; I25.10 Atherosclerotic heart disease of native coronary artery without angina pectoris; K82.8 Other specified diseases of gallbladder; Z95.5 Presence of coronary angioplasty implant and graft; Z88.0 Allergy status to penicillin
CPT/HCPCS: 36415; 71045; 74176; 80053; 81001; 82948; 83605; 83690; 84145; 84478; 84484; 85025; 85610; 85730; 87040; 87081; 87088; 87502; 87503; 93005; G0378; J1170; J1644; J1815; J1956; J2270; J2405; J3490; J7030; J7042

== ENCOUNTER 2019-05-09 18:39 | Inpatient (IN) | payer BC ==
[~2019-05-09] VITALS: Ht 185.4 cm; Wt 115.0 kg
[~2019-05-09 18:39] MED LIST changes: -ASPI-1265 PO; -AZIT500T9 PO; +CANA300T PO; +CARV-49 PO; -CEFD300C3 PO; +CLOP75TA35 PO; -COR3.125T PO; -FENO145T25 PO; +FENO145T38 PO; -FURO-150 PO; +GLIP10TA21 PO; -GLIP5TAB26 PO; -LACT1CAP26 PO; +LEVO500T89 PO; -METF1000 PO; +METF500T PO; +METR-159 PO; +MORP15TA PO; -NITR0.4T51 SL; -OMEG1CAP PO; -PANT40TA4 PO; -POTA20TA19 PO; -SITA100T11 PO; -TICA90TA PO
[2019-05-09] MEDS ORDERED: morphine 4 MG/ML inj SYRINge IV ONE (19:20)
[2019-05-09] MEDS ORDERED: ondansetron/PF 4mg/2ml inj IV ONE (19:20)
--- NOTE | 2019-05-09 19:43 | NUR ---
PIV IN PLACE, NS 500 CC BOLUS INFUSING AND THEN OK TO GIVEN PT MORPHINE, PER ISRAEL GUTIERREZ, PT WITH LOW BP IN TRIAGE AND HS OF "DROPPING MY BP WHEN GIVEN MORPHINE". PT REPORTS HE HAD A VASC TECH WITH DILAUDID LAST PANCREATITIS ADMISSION (APROX 2 YRS AGO) AND IT WORKED VERY WELL TO CONTROL HIS PAIN. PTS AT BEDSIDE,.
[2019-05-09 20:14] LABS: BASOPHILS # (AUTO) 0.1 X10'3 (0-0.2); MONOCYTES # (AUTO) 1.3 X10'3 (0-0.9); RED CELL DISTRIBUTION WIDTH 17.2 % (11.5-14.5)
[2019-05-09 20:16] LABS: BASOPHILS % (AUTO) 0.6 % (0-1); EOSINOPHILS # (AUTO) 0.2 X10'3 (0-0.9); EOSINOPHILS % (AUTO) 1.3 % (0-6); HEMATOCRIT 37.9 % (42.0-52.0); HEMOGLOBIN 12.4 g/dl (14.0-17.9); LYMPHOCYTES # (AUTO) 1.5 X10'3 (1.1-4.8); LYMPHOCYTES % (AUTO) 9.9 % (21-51); MEAN CORPUSCULAR HEMOGLOBIN 26.4 PG (27.0-31.0); MEAN CORPUSCULAR HGB CONC 32.7 g/dL (33.0-36.5); MEAN CORPUSCULAR VOLUME 80.6 FL (78-98); MEAN PLATELET VOLUME 7.2 FL (7.4-10.4); MONOCYTES % (AUTO) 8.5 % (2-12); NEUTROPHILS % (AUTO) 79.7 % (42-75); WHITE BLOOD COUNT 15.1 X10'3 (4.5-11.0)
[2019-05-09 20:20] LABS: PLATELET COUNT 1049 X10'3 (140-440)
[2019-05-09 20:26] LABS: ALBUMIN 1.6 G/DL (3.4-5.0); ANION GAP 6 (8-16); BILIRUBIN,TOTAL 0.5 MG/DL (0.1-1.0); BLOOD UREA NITROGEN 7 MG/DL (7-18); BUN/CREATININE RATIO 10.3 (5.4-32.0); CALCIUM 8.8 MG/DL (8.5-10.1); CHLORIDE 101 MMOL/L (99-107); CREATININE 0.68 MG/DL (0.60-1.10); GLUCOSE 159 MG/DL (70-104); POTASSIUM 3.8 MMOL/L (3.5-5.1); SODIUM 136 MMOL/L (135-145); TOTAL CARBON DIOXIDE 29.5 MMOL/L (24-32); TOTAL PROTEIN 6.6 G/DL (6.4-8.2); eGFR > 90 ML/MIN
[2019-05-09 20:27] LABS: ALANINE AMINOTRANSFERASE 14 U/L (12-78); ALBUMIN/GLOBULIN RATIO 0.3 (1.1-1.5); ALKALINE PHOSPHATASE 322 IU/L (46-116); ASPARTATE AMINO TRANSFERASE 37 U/L (10-37)
[2019-05-09 20:30] LABS: LIPASE 1932 U/L (73-393)
[2019-05-09] MEDS ORDERED: normal saline 1000ML IV soln IVB ONE (20:35)
[2019-05-09] MEDS ORDERED: HYDROmorphone inj. 0.5 MG/0.5 ML DISP.SYRIN IV ONE (20:40)
[2019-05-09] MEDS ORDERED: iohexol 300mg/ml 100ml inj. ONE (20:41)
--- NOTE | 2019-05-09 21:08 | NUR ---
CT ORDERED, BUT PT IN PAIN AND REPORTS THE MORPHINE DID NOT HELP. DILAUDID ORDERED AND PT REPORTS HE WANTS PAIN MANAGED PRIOR TO GOING TO CT.
[2019-05-09 21:15] LABS: TOTAL CELLS COUNTED 100
[2019-05-09 21:16] LABS: ANISOCYTOSIS 1+; PLATELET ESTIMATE INCREASED
--- NOTE | 2019-05-09 21:27 | NUR ---
BCX AND CULTURES DRAWN. MED REC COMPLETED.
[2019-05-09] MEDS ORDERED: ROSU40TA PO (21:35)
[2019-05-09] MEDS ORDERED: metroNIDAZOLE-Flagyl 500mg/NS 100 ML IV STA (23:05)
[2019-05-10] MEDS ORDERED: acetaminophen 325mg tablet PO PRN
[2019-05-10] MEDS ORDERED: HYDROmorphone inj. 0.5 MG/0.5 ML DISP.SYRIN IV ONE
[2019-05-10] MEDS ORDERED: magnesium hydroxide 30ml (MOM) UD suspension PO PRN
[2019-05-10] MEDS ORDERED: CADD PCA waste documentation MC PRN (00:05)
[2019-05-10] MEDS ORDERED: insulin Lispro (HumaLOG) vial - multi-dose SQ SCH (00:05)
[2019-05-10] MEDS ORDERED: glucagon, human recombinant 1mg kit SUBCUT PRN (00:05)
[2019-05-10] MEDS ORDERED: naloxone 0.4 mg/ml inj IV PRN (00:05)
[2019-05-10] MEDS ORDERED: dextrose ORAL solution 15 GM/59 ML bottle PO PRN ×2 (00:05)
[2019-05-10] MEDS ORDERED: dextrose 50%-water 50ml dispensing syringe IV PRN ×2 (00:05)
[2019-05-10] MEDS ORDERED: MESSAGE TO PHARMACY PO ONE (00:05)
[2019-05-10] MEDS ORDERED: normal saline 1000ML IV soln IVB ONE (00:10)
[2019-05-10] MEDS ORDERED: HYDROmorphone/NS 1 mg/ml CADD 50 ML IV SCH ×2 (01:00)
[2019-05-10] MEDS ORDERED: ATOR20TA66 PO (01:11)
[2019-05-10] MEDS: normal saline 1000ml 1,000 ML IV SCH ×2 (01:57→10:39)
--- NOTE | 2019-05-10 02:12 | NUR ---
Received report from SHARRON Magaña.
[2019-05-10 02:35] VITALS: BP 94/64
[2019-05-10] MEDS: HYDROmorphone/NS 1 mg/ml CADD 50 ML IV SCH ×11 (03:13→23:00)
[2019-05-10 06:00] VITALS: BP 108/70
[2019-05-10 06:08] LABS: BASOPHILS # (AUTO) 0.2 X10'3 (0-0.2); LYMPHOCYTES # (AUTO) 1.3 X10'3 (1.1-4.8); LYMPHOCYTES % (AUTO) 8.7 % (21-51); MEAN PLATELET VOLUME 7.4 FL (7.4-10.4); WHITE BLOOD COUNT 15.4 X10'3 (4.5-11.0)
[2019-05-10 06:10] LABS: EOSINOPHILS # (AUTO) 0.1 X10'3 (0-0.9); EOSINOPHILS % (AUTO) 0.7 % (0-6); HEMATOCRIT 39.4 % (42.0-52.0); HEMOGLOBIN 12.9 g/dl (14.0-17.9); MEAN CORPUSCULAR HEMOGLOBIN 26.3 PG (27.0-31.0); MEAN CORPUSCULAR HGB CONC 32.7 g/dL (33.0-36.5); MEAN CORPUSCULAR VOLUME 80.5 FL (78-98); MONOCYTES # (AUTO) 1.7 X10'3 (0-0.9); MONOCYTES % (AUTO) 10.9 % (2-12); NEUTROPHILS # (AUTO) 12.1 X10'3 (1.8-7.7); NEUTROPHILS % (AUTO) 78.7 % (42-75); RED CELL DISTRIBUTION WIDTH 17.5 % (11.5-14.5)
[2019-05-10 06:19] LABS: PLATELET COUNT 1281 X10'3 (140-440)
--- NOTE | 2019-05-10 06:25 | NUR ---
Patient report given, questions answered and plan of care reviewed with SHARRON Barnett.
[2019-05-10 06:31] LABS: ALANINE AMINOTRANSFERASE 14 U/L (12-78); ALBUMIN 1.5 G/DL (3.4-5.0); ALBUMIN/GLOBULIN RATIO 0.3 (1.1-1.5); ALKALINE PHOSPHATASE 253 IU/L (46-116); ANION GAP 10 (8-16); ASPARTATE AMINO TRANSFERASE 28 U/L (10-37); BILIRUBIN,TOTAL 0.4 MG/DL (0.1-1.0); BLOOD UREA NITROGEN 14 MG/DL (7-18); BUN/CREATININE RATIO 12.3 (5.4-32.0); CALCIUM 8.1 MG/DL (8.5-10.1); CHLORIDE 103 MMOL/L (99-107); CREATININE 1.14 MG/DL (0.60-1.10); GLUCOSE 160 MG/DL (70-104); POTASSIUM 4.3 MMOL/L (3.5-5.1); SODIUM 140 MMOL/L (135-145); TOTAL CARBON DIOXIDE 26.9 MMOL/L (24-32); TOTAL PROTEIN 6.1 G/DL (6.4-8.2); eGFR 66 ML/MIN
--- NOTE | 2019-05-10 06:44 | NUR ---
Patient in room ORTHO 4017. I have received report from Mitzi MCDERMOTT and had the opportunity to ask questions and assume patient care.
[2019-05-10] MEDS: K and/or MAG REPLACEMENT MC SCH ×4 (07:09→20:00)
[2019-05-10] MEDS ORDERED: lisinopril 20mg tablet PO SCH (08:00)
[2019-05-10 08:01] LABS: ANISOCYTOSIS 1+; PLATELET ESTIMATE INCREASED
[2019-05-10] MEDS: fenofibrate 145mg tablet PO SCH (08:05)
[2019-05-10] MEDS: atorvastatin 20mg tablet PO SCH (08:05)
[2019-05-10] MEDS: carvedilol 6.25mg tablet PO SCH ×2 (08:05→20:00)
[2019-05-10] MEDS: clopidogrel 75mg tablet PO SCH (08:05)
[2019-05-10] MEDS: heparin, porcine 5000 units/ml vial SQ SCH ×2 (08:05→21:29)
[2019-05-10 08:07] LABS: TOTAL CELLS COUNTED 100
[2019-05-10] MEDS: MESSAGE TO NURSING PO NR (09:13)
[2019-05-10 10:00] VITALS: BP 89/53
[2019-05-10] MEDS ORDERED: potassium CL 10mEq/100ml bag 100 ML IV PRN ×3 (10:15)
[2019-05-10] MEDS ORDERED: magnesium Cl slow-release 64mg tablet PO PRN (10:15)
[2019-05-10] MEDS ORDERED: potassium Cl 20 mEq SR tablet PO PRN ×2 (10:15)
[2019-05-10] MEDS ORDERED: magnesium 4gm in 100ml NS 100 ML IV PRN (10:15)
[2019-05-10] MEDS: cefepime 1GM in D5W 50mL 50 ML IV SCH ×3 (10:39→23:32)
--- NOTE | 2019-05-10 11:32 | NUR ---
Robert Melgar needs a picc line placed. consent is signed. thank you.
--- NOTE | 2019-05-10 11:35 | NUR ---
Contacted Anibal MCDERMOTT regarding PICC order, per Anibal dietary will be calling Dr Butler to see if PICC is needed for TPN as he is eating a normal diet... Anibal MCDERMOTT stated he would page if PICC is still needed. ALEXANDRU PICC SHARRON
[2019-05-10] MEDS: metroNIDAZOLE-Flagyl 500mg/NS 100 ML IV SCH ×2 (11:41→16:42)
--- NOTE | 2019-05-10 12:54 | NUR ---
TPN/Malnutrition/DM Consults: Pt admit w/ abdominal pain hx pancreatic pseudocyst and recently d/c from [facility] tolerating PO 4-5 days but now new onset abdominal pain. Cyst remains present put slightly smaller per MD note. On clear liquids w/ 100% PO this admit and eating 100% PO carb controlled meals last admit 05/01 as well. Pt was seen by RD last week and provided written/verbal DM, heart healthy, pancreatitis, and hypertriglyceridemia eds w/ RD contact information. LBM 05/09 and functional gut. Pt now NPO pending PICC with TPN to start today per . ANTONINO [employer] regarding corpak post-pyloric EN MNT for pancreatitis given functional gut, good PO previously, and to prevent bacterial translocation. MD declines EN; stated pt to be NPO w/ TPN starting today. PN recs below. Pt has no wt loss hx given prior pt stated wts, normal strength, no significant edema, good PO hx, and does not meet minimum malnutrition criteria at this time. Pt current wt is pt stated; RD d/w RN regarding scaled wt in order to provide accurate PN recs. Will monitor for PN tolerance and signs of refeeding syndrome. Rec: 1. TPN via PICC line per using 2:1 Clinimix E 5/20 at 95ml/hr goal. Separate 204ml 20% intralipid infusions to run for 12 hours daily at 17ml/hr in order to meet pt essential fatty acid needs. 2. Initiate at 30ml/hr and if tolerated Q12 advance to goal. 3. In total; to provide 2280ml fluid, 114g AA, 456g DEX (2.75mg/kg/min), 41g intralipids and 2416 total kcals. 4. Monitor for PN tolerance and refeeding signs 5. TG/PALB Q /; daily wts 6. IF prolonged NPO consider post-pyloric EN for optimal nutrition delivery given functional gut 7. Advance diet as medically indicated to low fat Addendum: 05/10/19 at [address] Amended: Links added.
--- NOTE | 2019-05-10 14:20 | NUR ---
Spoke with patient regarding PICC line insertion risk factors and benefits. Pt states at this time he is refusing picc line. I again discussed the need for the central as ordered per Dr. Butler. Pt continues to refuse. Pt educated that if he should change his mind we would be available to assist with line insertion at a later date. RN notified of pts refusal as well as Dr. Butler.
[2019-05-10] MEDS ORDERED: Dextrose 10%-water IV solution 1,000 ML IV PRN ×2 (14:40)
--- NOTE | 2019-05-10 14:56 | NUR ---
Nursing, Picc Nurse and MD educated patient on the importance of a PICC line, Patient refused adamantly.
--- NOTE | 2019-05-10 15:20 | NUR ---
F/u: Pt refused PICC line and TPN; to remain NPO at this time per MD. Pt previously PO 100% meals and good PO hx recent admit as well. Will monitor for diet advancement and tolerance. TPN/Malnutrition/DM Consults: Pt admit w/ abdominal pain hx pancreatic pseudocyst and recently d/c from [facility] tolerating PO 4-5 days but now new onset abdominal pain. Cyst remains present put slightly smaller per MD note. On clear liquids w/ 100% PO this admit and eating 100% PO carb controlled meals last admit 05/01 as well. Pt was seen by RD last week and provided written/verbal DM, heart healthy, pancreatitis, and hypertriglyceridemia eds w/ RD contact information. LBM 05/09 and functional gut. Pt now NPO pending PICC with TPN to start today per MD. ANTONINO Saff[email or web address] MD regarding corpak post-pyloric EN MNT for pancreatitis given functional gut, good PO previously, and to prevent bacterial translocation. MD declines EN; stated pt to be NPO w/ TPN starting today. PN recs below. Pt has no wt loss hx given prior pt stated wts, normal strength, no significant edema, good PO hx, and does not meet minimum malnutrition criteria at this time. Pt current wt is pt stated; ANTONINO d/w RN regarding scaled wt in order to provide accurate PN recs. Will monitor for PN tolerance and signs of refeeding syndrome. Rec: 1. IF prolonged NPO consider post-pyloric EN for optimal nutrition delivery given functional gut 2. Advance diet as medically indicated to low fat/carb controlled 3. bowel care as needed 4. wt per rx Addendum: 05/10/19 at [address] Amended: Links added.
[2019-05-10 18:00] VITALS: BP 73/45
[2019-05-10] MEDS ORDERED: [UNRECOGNIZED DRUG - OTHER] IV SCH (18:00)
[2019-05-10] MEDS ORDERED: TRACE ELEMENT IV SCH (18:00)
[2019-05-10] MEDS ORDERED: DEXT IV SCH (18:00)
[2019-05-10] MEDS ORDERED: LYTES IV SCH (18:00)
[2019-05-10] MEDS ORDERED: CALCIUM IV SCH (18:00)
--- NOTE | 2019-05-10 18:29 | NUR ---
Problems reprioritized. Patient report given, questions answered & plan of care reviewed with Xavier MCDERMOTT.
[2019-05-10] MEDS ORDERED: fat emulsion IV bag 250 ML IV SCH (20:00)
[2019-05-10] MEDS ORDERED: heparin, porcine 5000 units/ml vial SQ SCH (20:00)
[2019-05-10] MEDS: insulin glargine (Lantus) pen - multi-dose SQ SCH (21:00)
[2019-05-10 22:00] VITALS: BP 83/57
[2019-05-11] MEDS: metroNIDAZOLE-Flagyl 500mg/NS 100 ML IV SCH ×3 (00:20→15:48)
[2019-05-11] MEDS: HYDROmorphone/NS 1 mg/ml CADD 50 ML IV SCH ×12 (01:00→23:00)
[2019-05-11 06:00] VITALS: BP 91/61
[2019-05-11] MEDS: normal saline 1000ml 1,000 ML IV SCH ×2 (06:18→20:35)
--- NOTE | 2019-05-11 06:20 | NUR ---
Patient in room ORTHO 4017. I have received report from ALEKSANDAR MCDERMOTT and had the opportunity to ask questions and assume patient care.
[2019-05-11 06:51] LABS: HEMATOCRIT 35.8 % (42.0-52.0); MEAN PLATELET VOLUME 7.5 FL (7.4-10.4); NEUTROPHILS # (AUTO) 23.6 X10'3 (1.8-7.7)
[2019-05-11 06:53] LABS: BASOPHILS # (AUTO) 0.2 X10'3 (0-0.2); BASOPHILS % (AUTO) 0.8 % (0-1); EOSINOPHILS # (AUTO) 0.2 X10'3 (0-0.9); EOSINOPHILS % (AUTO) 0.6 % (0-6); HEMOGLOBIN 11.5 g/dl (14.0-17.9); LYMPHOCYTES # (AUTO) 1.4 X10'3 (1.1-4.8); LYMPHOCYTES % (AUTO) 5.2 % (21-51); MEAN CORPUSCULAR HEMOGLOBIN 26.5 PG (27.0-31.0); MEAN CORPUSCULAR HGB CONC 32.1 g/dL (33.0-36.5); MEAN CORPUSCULAR VOLUME 82.7 FL (78-98); MONOCYTES % (AUTO) 7.4 % (2-12); RED BLOOD COUNT 4.32 X10'6 (4.70-6.10); RED CELL DISTRIBUTION WIDTH 17.5 % (11.5-14.5)
[2019-05-11 06:55] LABS: WHITE BLOOD COUNT 27.4 X10'3 (4.5-11.0)
[2019-05-11 06:56] LABS: PLATELET COUNT 1020 X10'3 (140-440)
--- NOTE | 2019-05-11 07:12 | NUR ---
PAGER ID: [phone] MESSAGE: LISANDRA [id number] RE: LUCA [id number] CRITICAL LABS WBC 27.4 AND PLATELETS 1020.
[2019-05-11 07:44] LABS: ALANINE AMINOTRANSFERASE 14 U/L (12-78); ALBUMIN 1.4 G/DL (3.4-5.0); ALBUMIN/GLOBULIN RATIO 0.3 (1.1-1.5); ALKALINE PHOSPHATASE 188 IU/L (46-116); ANION GAP 11 (8-16); ASPARTATE AMINO TRANSFERASE 28 U/L (10-37); BILIRUBIN,TOTAL 0.5 MG/DL (0.1-1.0); BUN/CREATININE RATIO 9.2 (5.4-32.0); CALCIUM 7.9 MG/DL (8.5-10.1); CHLORIDE 97 MMOL/L (99-107); GLUCOSE 174 MG/DL (70-104); PHOSPHORUS 7.4 MG/DL (2.3-4.5); POTASSIUM 4.8 MMOL/L (3.5-5.1); SODIUM 134 MMOL/L (135-145); TOTAL CARBON DIOXIDE 26.2 MMOL/L (24-32); TOTAL PROTEIN 6.2 G/DL (6.4-8.2); TRIGLYCERIDES 106 MG/DL (20-135); eGFR 21 ML/MIN
[2019-05-11 07:46] LABS: LIPASE 1606 U/L (73-393)
[2019-05-11] MEDS: heparin, porcine 5000 units/ml vial SQ SCH ×3 (07:46→20:23)
[2019-05-11] MEDS: carvedilol 6.25mg tablet PO SCH ×2 (07:47→20:00)
[2019-05-11] MEDS: clopidogrel 75mg tablet PO SCH ×2 (07:47→08:23)
[2019-05-11 07:50] LABS: TOTAL CELLS COUNTED 100
[2019-05-11 07:51] LABS: ANISOCYTOSIS 2+; HYPOCHROMASIA 1+; MICROCYTOSIS 1+; PLATELET ESTIMATE INCREASED; POLYCHROMASIA 1+
[2019-05-11] MEDS: K and/or MAG REPLACEMENT MC SCH ×2 (08:00→20:00)
[2019-05-11] MEDS ORDERED: MVI, adult No.4 with vit. K 10 ML in dextrose 5% water 500ml 500 ML IV SCH ×2 (08:00)
--- NOTE | 2019-05-11 08:05 | NUR ---
PAGER ID: [phone] MESSAGE: LISANDRA [id number] RE: LUCA [id number] CRITICAL MAG 1.0
[2019-05-11 08:06] LABS: BLOOD UREA NITROGEN 28 MG/DL (7-18)
[2019-05-11 08:07] LABS: CREATININE 3.05 MG/DL (0.60-1.10)
[2019-05-11] MEDS: cefepime 1GM in D5W 50mL 50 ML IV SCH ×3 (08:12→23:37)
[2019-05-11] MEDS: atorvastatin 20mg tablet PO SCH (08:12)
[2019-05-11] MEDS: fenofibrate 145mg tablet PO SCH (08:12)
[2019-05-11] MEDS: ondansetron/PF 4mg/2ml inj IV PRN (09:34)
[2019-05-11 10:00] VITALS: BP 94/64
[2019-05-11] MEDS: MESSAGE TO NURSING PO NR (10:06)
[2019-05-11] MEDS ORDERED: VANCOMYCIN LEVEL IV ONE (11:30)
[2019-05-11 15:25] VITALS: BP 97/65
[2019-05-11 15:30] VITALS: BP 95/68
[2019-05-11 16:02] LABS: GLUCOSE,BODY FLUID 163 MG/DL; LDH,BODY FLUID 491 U/L; TOTAL PROTEIN,BODY FLUID 3.4 G/DL
[2019-05-11 16:15] LABS: LYMPHOCYTES,BODY FLUID 3 %; MONOCYTES,BODY FLUID 10 %; NEUTROPHILS,BODY FLUID 87 %
[2019-05-11 16:16] LABS: BF RBC COUNT 375 /CU MM; BF WBC COUNT 16000 /CU MM (0-1000); BFAPPEAR CLOUDY; BFCOLOR YELLOW; BFVOLUME 52 ML
[2019-05-11 18:00] VITALS: BP 94/64
--- NOTE | 2019-05-11 18:15 | NUR ---
Problems reprioritized. Patient report given, questions answered & plan of care reviewed with ALEKSANDAR MCDERMOTT.
--- NOTE | 2019-05-11 19:00 | NUR ---
Patient in room ORTHO 4017. I have received report from Mayur MCDERMOTT and had the opportunity to ask questions and assume patient care.
--- NOTE | 2019-05-11 19:47 | NUR ---
I spoke to Edna Shultz STAVE BLOCK ROLLER regarding pt's low magnesium level of 1.0, and that he was replaced with 4gm iv magnesium today; but no orders for a 2gm magnesium. He said since patient's bun/creat has changed so much in the last 24hrs to not get orders for the additional 2gm iv magnesium that is normally ordered on magnesium replacement. Recheck magnesium level in am and then talk to the day md regarding this.
[2019-05-11] MEDS: lactobacillus rhamnosus 10,000 MMU CELLS/CAPSULE PO SCH (20:26)
[2019-05-11] MEDS: insulin glargine (Lantus) pen - multi-dose SQ SCH (21:00)
[2019-05-11 22:00] VITALS: BP 103/65
[2019-05-12] VITALS (15 sets, daily range): BP systolic 82–103; BP diastolic 42–67
[2019-05-12] MEDS: metroNIDAZOLE-Flagyl 500mg/NS 100 ML IV SCH ×2 (00:23→07:14)
[2019-05-12] MEDS: HYDROmorphone/NS 1 mg/ml CADD 50 ML IV SCH ×8 (01:00→19:00)
--- NOTE | 2019-05-12 02:48 | NUR ---
PT has had very little urinary output, PT is on IV fluids and on a clear liquid diet. Bladder scanned pt and got various reading, unable to trust results due to extensive fluid collection in the abdomen. Irrigated catheter, no resistance detected. Pt doesn't think he feels pressure but its hard for him to tell. Max Shultz was called and notified about how the patient was having virtually no urinary output. Max said to keep the fluids running and let the telephone clerk telegraph office re-evaluate in the morning.
[2019-05-12] MEDS: ondansetron/PF 4mg/2ml inj IV PRN (03:29)
--- NOTE | 2019-05-12 06:44 | NUR ---
ZOFRAN REASSESSMENT NOT DONE,PATIENT HAS NO NAUSEA AT THIS TIME
[2019-05-12] MEDS: atorvastatin 20mg tablet PO SCH (07:12)
[2019-05-12] MEDS: lactobacillus rhamnosus 10,000 MMU CELLS/CAPSULE PO SCH ×2 (07:12→20:56)
[2019-05-12] MEDS: clopidogrel 75mg tablet PO SCH (07:12)
[2019-05-12] MEDS: cefepime 1GM in D5W 50mL 50 ML IV SCH (07:14)
[2019-05-12] MEDS: heparin, porcine 5000 units/ml vial SQ SCH ×2 (07:14→20:56)
[2019-05-12] MEDS: carvedilol 6.25mg tablet PO SCH (07:15)
[2019-05-12] MEDS: normal saline 1000ml 1,000 ML IV SCH ×2 (07:15→19:30)
[2019-05-12 07:49] LABS: BASOPHILS # (AUTO) 0.1 X10'3 (0-0.2); EOSINOPHILS # (AUTO) 0.1 X10'3 (0-0.9); MEAN PLATELET VOLUME 7.6 FL (7.4-10.4)
[2019-05-12 07:52] LABS: BASOPHILS % (AUTO) 0.2 % (0-1); EOSINOPHILS % (AUTO) 0.4 % (0-6); HEMATOCRIT 36.6 % (42.0-52.0); HEMOGLOBIN 11.6 g/dl (14.0-17.9); LYMPHOCYTES # (AUTO) 1.4 X10'3 (1.1-4.8); LYMPHOCYTES % (AUTO) 4.7 % (21-51); MEAN CORPUSCULAR HEMOGLOBIN 26.1 PG (27.0-31.0); MEAN CORPUSCULAR HGB CONC 31.7 g/dL (33.0-36.5); MEAN CORPUSCULAR VOLUME 82.2 FL (78-98); MONOCYTES # (AUTO) 1.3 X10'3 (0-0.9); MONOCYTES % (AUTO) 4.4 % (2-12); NEUTROPHILS # (AUTO) 26.4 X10'3 (1.8-7.7); NEUTROPHILS % (AUTO) 90.3 % (42-75); PLATELET COUNT 974 X10'3 (140-440); RED BLOOD COUNT 4.45 X10'6 (4.70-6.10); RED CELL DISTRIBUTION WIDTH 18.5 % (11.5-14.5)
[2019-05-12 07:55] LABS: WHITE BLOOD COUNT 29.2 X10'3 (4.5-11.0)
[2019-05-12] MEDS ORDERED: fluconazole/NS 400mg/200ml bag 200 ML IV SCH (08:00)
[2019-05-12] MEDS: K and/or MAG REPLACEMENT MC SCH ×2 (08:00→20:00)
--- NOTE | 2019-05-12 08:02 | NUR ---
PAGER ID: [phone] MESSAGE: [phone] Talia Nolan- Critical lab WBC 29.2, yesterday WBC was 27.4
[2019-05-12 08:12] LABS: ANISOCYTOSIS 2+; HYPOCHROMASIA 1+; LARGE PLATELETS FEW; MICROCYTOSIS 1+; PLATELET ESTIMATE INCREASED; POLYCHROMASIA 1+; TOTAL CELLS COUNTED 100
[2019-05-12 08:15] LABS: ALANINE AMINOTRANSFERASE 11 U/L (12-78); ALBUMIN 1.4 G/DL (3.4-5.0); ALBUMIN/GLOBULIN RATIO 0.3 (1.1-1.5); ALKALINE PHOSPHATASE 180 IU/L (46-116); ANION GAP 16 (8-16); ASPARTATE AMINO TRANSFERASE 32 U/L (10-37); BILIRUBIN,TOTAL 0.4 MG/DL (0.1-1.0); BLOOD UREA NITROGEN 39 MG/DL (7-18); BUN/CREATININE RATIO 9.5 (5.4-32.0); CALCIUM 8.1 MG/DL (8.5-10.1); CHLORIDE 94 MMOL/L (99-107); GLUCOSE 159 MG/DL (70-104); MAGNESIUM 1.6 MG/DL (1.5-2.4); PHOSPHORUS 8.1 MG/DL (2.3-4.5); POTASSIUM 4.9 MMOL/L (3.5-5.1); SODIUM 133 MMOL/L (135-145); TOTAL CARBON DIOXIDE 23.3 MMOL/L (24-32); TOTAL PROTEIN 6.4 G/DL (6.4-8.2); eGFR 15 ML/MIN
--- NOTE | 2019-05-12 09:41 | NUR ---
PAGER ID: [phone] MESSAGE: [phone] Talia Estrada recommends for patient to get sent to ICU
[2019-05-12] MEDS: aspirin 81mg tablet.DR PO SCH (10:47)
[2019-05-12] MEDS: MEROPENEM 500MG/50ML-NS IVPB 50 ML IV SCH ×2 (10:51→20:11)
--- NOTE | 2019-05-12 11:00 | NUR ---
Problems reprioritized. Patient report given, questions answered & plan of care reviewed with Katie RN .
[2019-05-12] MEDS ORDERED: VANCOMYCIN LEVEL IV ONE (11:30)
--- NOTE | 2019-05-12 11:37 | NUR ---
Patient stable during transfer to ICU, belongings sent with patient. followed at bedside.
--- NOTE | 2019-05-12 11:44 | NUR ---
Received pt from floor. Pt awake and alert answers questions appropriately. ABD large hard and distended. Pt has eladia and noted by RN zero out put for 24hrs. Will cont to monitor
--- NOTE | 2019-05-12 12:30 | NUR ---
No urine output aware
--- NOTE | 2019-05-12 18:15 | NUR ---
Patient in room ICU 2041. I have received report from and had the opportunity to ask questions and assume patient care.
[2019-05-12] MEDS ORDERED: cefepime 1GM in D5W 50mL 50 ML IV SCH (20:00)
[2019-05-12] MEDS: insulin glargine (Lantus) pen - multi-dose SQ SCH (21:00)
--- NOTE | 2019-05-12 22:10 | NUR ---
This RN called and spoke with Max Shultz APRN advised that patient had no urine output so far this shift. This RN also advised that patient was reporting generalized not feeling well, that RR were labored and patient was tachypneic with hypotension @ 87/47 which has been an ongoing thing today. Order for 20 mg Lasix IV one time. this RN will continue to monitor this patient.
[2019-05-12] MEDS ORDERED: furosemide 20 MG/2 ML vial IV ONE (22:15)
--- NOTE | 2019-05-12 23:00 | NUR ---
Following Lasix 20mg IV approximately one hour ago patient urine output has been 8cc brownish urine.
[2019-05-13] VITALS (24 sets, daily range): BP systolic 75–101; BP diastolic 44–76
--- NOTE | 2019-05-13 00:10 | NUR ---
Following Lasix 20 mg IV x1 at 2215 patient has had 20cc UOP in the past hour.This makes a total of 28cc UOP post Lasix dose.
[2019-05-13] MEDS: HYDROmorphone/NS 1 mg/ml CADD 50 ML IV SCH ×11 (01:00→21:00)
[2019-05-13] MEDS: normal saline 1000ml 1,000 ML IV SCH (05:01)
[2019-05-13 06:09] LABS: BASOPHILS # (AUTO) 0.2 X10'3 (0-0.2); BASOPHILS % (AUTO) 0.7 % (0-1); HEMOGLOBIN 10.8 g/dl (14.0-17.9); MONOCYTES # (AUTO) 1.2 X10'3 (0-0.9); NEUTROPHILS % (AUTO) 91.1 % (42-75)
[2019-05-13 06:13] LABS: EOSINOPHILS % (AUTO) 0.2 % (0-6); HEMATOCRIT 34.6 % (42.0-52.0); LYMPHOCYTES # (AUTO) 1.1 X10'3 (1.1-4.8); LYMPHOCYTES % (AUTO) 3.8 % (21-51); MEAN CORPUSCULAR HEMOGLOBIN 25.9 PG (27.0-31.0); MEAN CORPUSCULAR HGB CONC 31.3 g/dL (33.0-36.5); MEAN CORPUSCULAR VOLUME 82.6 FL (78-98); MEAN PLATELET VOLUME 8.2 FL (7.4-10.4); MONOCYTES % (AUTO) 4.2 % (2-12); NEUTROPHILS # (AUTO) 25.8 X10'3 (1.8-7.7); PLATELET COUNT 958 X10'3 (140-440); RED BLOOD COUNT 4.19 X10'6 (4.70-6.10); RED CELL DISTRIBUTION WIDTH 18.4 % (11.5-14.5)
[2019-05-13 06:23] LABS: WHITE BLOOD COUNT 28.3 X10'3 (4.5-11.0)
--- NOTE | 2019-05-13 06:29 | NUR ---
Problems reprioritized. Patient report given, questions answered & plan of care reviewed with Nathaniel MCDERMOTT.
--- NOTE | 2019-05-13 06:30 | NUR ---
Patient in room ICU 2041. I have received report from SHARRON Reveles and had the opportunity to ask questions and assume patient care.
--- NOTE | 2019-05-13 06:46 | NUR ---
Problems reprioritized. Patient report given, questions answered & plan of care reviewed with Marissa MCDERMOTT.
[2019-05-13 06:47] LABS: ALANINE AMINOTRANSFERASE 9 U/L (12-78); ALBUMIN 1.2 G/DL (3.4-5.0); ALBUMIN/GLOBULIN RATIO 0.2 (1.1-1.5); ALKALINE PHOSPHATASE 184 IU/L (46-116); ANION GAP 14 (8-16); ASPARTATE AMINO TRANSFERASE 34 U/L (10-37); BILIRUBIN,TOTAL 0.4 MG/DL (0.1-1.0); BLOOD UREA NITROGEN 50 MG/DL (7-18); CALCIUM 8.1 MG/DL (8.5-10.1); CHLORIDE 96 MMOL/L (99-107); CREATININE 5.02 MG/DL (0.60-1.10); GLUCOSE 128 MG/DL (70-104); MAGNESIUM 1.7 MG/DL (1.5-2.4); PHOSPHORUS 8.6 MG/DL (2.3-4.5); SODIUM 131 MMOL/L (135-145); TOTAL CARBON DIOXIDE 21.1 MMOL/L (24-32); TOTAL PROTEIN 6.1 G/DL (6.4-8.2); eGFR 12 ML/MIN
[2019-05-13] MEDS: atorvastatin 20mg tablet PO SCH (07:38)
[2019-05-13] MEDS: aspirin 81mg tablet.DR PO SCH (07:38)
[2019-05-13] MEDS: lactobacillus rhamnosus 10,000 MMU CELLS/CAPSULE PO SCH ×2 (07:38→20:00)
[2019-05-13] MEDS: MEROPENEM 500MG/50ML-NS IVPB 50 ML IV SCH ×2 (07:38→20:23)
[2019-05-13] MEDS: clopidogrel 75mg tablet PO SCH (07:38)
[2019-05-13] MEDS: K and/or MAG REPLACEMENT MC SCH ×2 (07:39→20:00)
[2019-05-13] MEDS: heparin, porcine 5000 units/ml vial SQ SCH ×2 (07:39→20:24)
[2019-05-13] MEDS ORDERED: levoFLOXACIN-Levaquin 500mg/D5 100 ML IV SCH (08:00)
[2019-05-13] MEDS: fluconazole-Diflucan 200mg/NS 100 ML IV SCH (08:14)
[2019-05-13 09:39] LABS: TOTAL CELLS COUNTED 100
[2019-05-13 09:42] LABS: ANISOCYTOSIS 2+; HYPOCHROMASIA 1+; LARGE PLATELETS FEW; PLATELET ESTIMATE INCREASED; POLYCHROMASIA FEW
[2019-05-13 10:29] LABS: LIPASE 1813 U/L (73-393)
[2019-05-13] MEDS: sodium bicarbonate (8.4%) inj. 100 MEQ in dextrose 5%-water 1,000 ML IV SCH ×2 (11:42→20:35)
--- NOTE | 2019-05-13 11:58 | NUR ---
Reassessment: Pt advanced to clear liquids PO 25-50%. Abdominal pain but discomfort much improved s/p paracentesis for ascites per MD note. LBM 05/09. Phos up to 8.6 today; may benefit from phosphorus binder per hook and eye sewing machine operator approval. Lipase slightly down from initial on admit. Will continue to monitor for diet advancement and tolerance s/p paracentesis. Rec: 1. advance diet per MD to low fat/carb controlled 2. monitor for ONS needs as diet advances 3. bowel care as needed 4. wt per rx Addendum: 05/13/19 at [address] Amended: Links added.
--- NOTE | 2019-05-13 18:20 | NUR ---
Patient in room ICU 2041. I have received report from Nathaniel MCDERMOTT and had the opportunity to ask questions and assume patient care. Patient resting in bed watching tv with at bedside, in no apparent distress. Vitals WNL at this time. Will continue to monitor patient closely.
--- NOTE | 2019-05-13 18:22 | NUR ---
Problems reprioritized. Patient report given, questions answered & plan of care reviewed with SHARRON Guillaume.
[2019-05-13] MEDS: insulin glargine (Lantus) pen - multi-dose SQ SCH (21:00)
[2019-05-13] MEDS ORDERED: albumin (human) 25% 100 ML IV solution IV ONE (21:05)
[2019-05-13] MEDS ORDERED: furosemide 10 MG/1 ML 10ml inj IV ONE (21:05)
--- NOTE | 2019-05-13 21:17 | NUR ---
Patient complaining of increasing SOB. Patient visibly struggling to breath, breathing shallow/labored breaths. Abdomen extremely distended. Upper lobes clear to auscultation, bilateral lower lobes very diminished. Patient saturating between 92-94% on 2LNC. Notified Max Shultz HISTOTECHNOLOGIST SUPERVISOR regarding patient's condition. Informed him that patient's kidney lab values are very poor, patient is anuric, and was started on bicarb at 100 ml/hr during day shift. New orders received.
[2019-05-13] MEDS ORDERED: albuterol 2.5 MG/3 ML nebule NEB PRN (21:35)
--- NOTE | 2019-05-13 21:58 | NUR ---
Spoke to patient's sister, Stacie Delvalle over the phone with patient's verbal consent to release information to her. Because she lives in [place] and is not available to be present during rounds, sister requesting to speak to disease case manager to "have an idea of what's going on" with patient's treatment and pending transfer to [facility]. Informed Stacie that I would notify daytime RN of request. States she is available any time. Phone number is [phone].
--- NOTE | 2019-05-13 22:52 | NUR ---
Patient becoming more lethargic and desaturating. O2 increased to 6LNC and placed in mouth due to mouth breathing. Notified Max Shultz NP. New orders received for ABG and chest Xray.
[2019-05-13 23:11] LABS: ABG BASE EXCESS -10.1 mmol/L (-2.0-3.0); ABG HCO3 19.8 mmol/L (22.0-26.0); ABG OXYGEN SATURATION 88.2 % (95-98); ABG PCO2 (T) 68.9 mmHg (35.0-45.0); ABG PH (T) 7.084 (7.350-7.450); ABG PO2 (T) 73.8 mmHg (83-108); FCOHb 0.2 % (0.5-1.5); FMetHb 0.3 % (0.3-1.12); FO2Hb 87.8 % (94-100); PATIENT TEMPERATURE 38.2; TOTAL HEMOGLOBIN 10.5 G/dl (14.0-17.9)
[2019-05-13] MEDS ORDERED: NORepinephrine 8mg/ 250ml NS 250 ML IV ONE (23:18)
[2019-05-13] MEDS ORDERED: succinylcholine 20mg/ml inj IV ONE (23:25)
[2019-05-13] MEDS: NORepinephrine 8mg/ 250ml NS 250 ML IV SCH (23:35)
[2019-05-13] MEDS ORDERED: LORazepam 2 mg/ml vial ONE (23:38)
[2019-05-13 23:46] LABS: EOSINOPHILS # (AUTO) 0.1 X10'3 (0-0.9); HEMOGLOBIN 9.5 g/dl (14.0-17.9); MEAN PLATELET VOLUME 7.4 FL (7.4-10.4)
[2019-05-13] MEDS ORDERED: midazolam 100mg in NS 100ml 100 ML IV PRN (23:46)
[2019-05-13] MEDS ORDERED: FENTANYL-0.9 % NACL/PF 100 ML IV PRN (23:46)
[2019-05-13 23:47] LABS: BASOPHILS % (AUTO) 0.2 % (0-1); EOSINOPHILS % (AUTO) 0.2 % (0-6); HEMATOCRIT 29.2 % (42.0-52.0); LYMPHOCYTES # (AUTO) 1.1 X10'3 (1.1-4.8); LYMPHOCYTES % (AUTO) 3.9 % (21-51); MEAN CORPUSCULAR HEMOGLOBIN 26.6 PG (27.0-31.0); MEAN CORPUSCULAR HGB CONC 32.7 g/dL (33.0-36.5); MEAN CORPUSCULAR VOLUME 81.3 FL (78-98); MONOCYTES % (AUTO) 3.8 % (2-12); NEUTROPHILS # (AUTO) 25.3 X10'3 (1.8-7.7); NEUTROPHILS % (AUTO) 91.9 % (42-75); PLATELET COUNT 901 X10'3 (140-440); RED BLOOD COUNT 3.59 X10'6 (4.70-6.10); RED CELL DISTRIBUTION WIDTH 18.2 % (11.5-14.5)
[2019-05-13 23:50] LABS: WHITE BLOOD COUNT 27.6 X10'3 (4.5-11.0)
[2019-05-13] MEDS ORDERED: ipratropium/albuterol 3ml nebule NEB PRN (23:50)
[2019-05-13] MEDS ORDERED: midazolam 2 mg/2 ml injection ONE (23:53)
[2019-05-13] MEDS ORDERED: fentaNYL/PF 50MCG/1 ML 2ML syringe ONE (23:55)
[2019-05-14] VITALS (24 sets, daily range): BP systolic 78–128; BP diastolic 44–68
[2019-05-14 00:01] LABS: ALANINE AMINOTRANSFERASE 8 U/L (12-78); ALBUMIN 1.9 G/DL (3.4-5.0); ALBUMIN/GLOBULIN RATIO 0.5 (1.1-1.5); ALKALINE PHOSPHATASE 147 IU/L (46-116); ANION GAP 14 (8-16); ASPARTATE AMINO TRANSFERASE 32 U/L (10-37); BILIRUBIN,TOTAL 0.5 MG/DL (0.1-1.0); BLOOD UREA NITROGEN 61 MG/DL (7-18); BUN/CREATININE RATIO 10.7 (5.4-32.0); CALCIUM 8.7 MG/DL (8.5-10.1); CHLORIDE 94 MMOL/L (99-107); CREATININE 5.72 MG/DL (0.60-1.10); GLUCOSE 194 MG/DL (70-104); POTASSIUM 4.8 MMOL/L (3.5-5.1); SODIUM 129 MMOL/L (135-145); TOTAL PROTEIN 5.9 G/DL (6.4-8.2); eGFR 10 ML/MIN
[2019-05-14] MEDS ORDERED: Duosol 4k/NO Calcium 5,000 ML HE SCH (00:27)
[2019-05-14] MEDS ORDERED: magnesium 4gm in 100ml NS 100 ML IV PRN (00:30)
[2019-05-14] MEDS ORDERED: heparin 10,000 units/1 ML INJ IV ONE (00:30)
[2019-05-14] MEDS ORDERED: sodium phosphate inj. 30 MMOL in normal saline 250ml IV soln 250 ML IV PRN (00:30)
[2019-05-14] MEDS ORDERED: heparin 10,000 units/1 ML INJ IV PRN (00:30)
[2019-05-14] MEDS ORDERED: potassium Cl 20mEq/100mL bag 100 ML IV PRN (00:30)
[2019-05-14] MEDS ORDERED: calcium chloride inj. 1,000 MG in normal saline 100ml IV soln 100 ML IV PRN (00:30)
[2019-05-14 00:51] LABS: ABG BASE EXCESS -10.2 mmol/L (-2.0-3.0); ABG OXYGEN SATURATION 89.5 % (95-98); ABG PCO2 (T) 47.3 mmHg (35.0-45.0); ABG PH (T) 7.193 (7.350-7.450); ABG PO2 (T) 60.8 mmHg (83-108); ALLEN'S TEST POSITIVE; FCOHb 0.2 % (0.5-1.5); FMetHb 0.3 % (0.3-1.12); FO2Hb 89.1 % (94-100); PATIENT TEMPERATURE 36.2; PEEP 5 cm H2O; RESPIRATORY RATE 20 b/min; TIDAL VOLUME 500 mL; TOTAL HEMOGLOBIN 11.6 G/dl (14.0-17.9)
[2019-05-14 02:46] LABS: ABG BASE EXCESS -8.4 mmol/L (-2.0-3.0); ABG HCO3 18.5 mmol/L (22.0-26.0); ABG OXYGEN SATURATION 93.6 % (95-98); ABG PCO2 (T) 42.2 mmHg (35.0-45.0); ABG PH (T) 7.256 (7.350-7.450); ABG PO2 (T) 69.2 mmHg (83-108); ALLEN'S TEST POSITIVE; FCOHb 0.2 % (0.5-1.5); FMetHb 0.3 % (0.3-1.12); FO2Hb 93.1 % (94-100); PATIENT TEMPERATURE 36.2; PEEP 10 cm H2O; RESPIRATORY RATE 20 b/min; TIDAL VOLUME 500 mL; TOTAL HEMOGLOBIN 12.1 G/dl (14.0-17.9)
[2019-05-14] MEDS: ipratropium/albuterol 3ml nebule NEB SCH ×6 (03:12→22:35)
--- NOTE | 2019-05-14 05:00 | NUR ---
2310: Patient no longer responding to voice or following commands. Desaturating to mid 80s on 6LNC. Notified Max Shultz CREDIT REVIEW ANALYST regarding patient's critical pH 7.0. Informed him that patient is deteriorating rapidly. Informed him that BP now 70s/40s. Stated he will call Dr. Martini for orders and to place patient on BiPAP in meantime. Order received for levophed to temporarily run through PIV until central line placed. 0000: Dr. Martini at bedside to intubate patient and to place central line and chico. CVVH to be started. BP now 117/64 with levophed infusing. notified by MD of emergent need to intubate patient and to begin CVVH. 0320: CVVH up and running. Machine initially alarming high access pressures, but able to be resolved by clinical biochemist. 0525: Machine alarming low venous access pressures and high acces pressure. Large clot noted in filter and unable to be aspirated. Flushed 100ccs of NS, unable to resume therapy. Blood returned to patient. Notified Max Shultz NP and clinical biochemist that machine has gone down.
[2019-05-14 05:07] LABS: EOSINOPHILS % (AUTO) 0.1 % (0-6); HEMOGLOBIN 11.4 g/dl (14.0-17.9); LYMPHOCYTES # (AUTO) 1.3 X10'3 (1.1-4.8)
[2019-05-14 05:09] LABS: BASOPHILS # (AUTO) 0.1 X10'3 (0-0.2); BASOPHILS % (AUTO) 0.2 % (0-1); HEMATOCRIT 34.9 % (42.0-52.0); LYMPHOCYTES % (AUTO) 3.3 % (21-51); MEAN CORPUSCULAR HEMOGLOBIN 26.4 PG (27.0-31.0); MEAN CORPUSCULAR HGB CONC 32.7 g/dL (33.0-36.5); MEAN CORPUSCULAR VOLUME 80.7 FL (78-98); MONOCYTES # (AUTO) 1.5 X10'3 (0-0.9); MONOCYTES % (AUTO) 3.9 % (2-12); NEUTROPHILS % (AUTO) 92.5 % (42-75); RED BLOOD COUNT 4.32 X10'6 (4.70-6.10); RED CELL DISTRIBUTION WIDTH 18.4 % (11.5-14.5)
[2019-05-14 05:12] LABS: PLATELET COUNT 1038 X10'3 (140-440); WHITE BLOOD COUNT 38.9 X10'3 (4.5-11.0)
[2019-05-14 05:24] LABS: PARTIAL THROMBOPLASTIN TIME 36 SECONDS (22-32)
[2019-05-14 05:29] LABS: ALANINE AMINOTRANSFERASE 7 U/L (12-78); ALBUMIN 1.7 G/DL (3.4-5.0); ALBUMIN/GLOBULIN RATIO 0.4 (1.1-1.5); ALKALINE PHOSPHATASE 156 IU/L (46-116); ANION GAP 15 (8-16); ASPARTATE AMINO TRANSFERASE 33 U/L (10-37); BILIRUBIN,TOTAL 0.5 MG/DL (0.1-1.0); BLOOD UREA NITROGEN 58 MG/DL (7-18); CALCIUM 8.4 MG/DL (8.5-10.1); CHLORIDE 95 MMOL/L (99-107); CREATINE KINASE 39 U/L (39-308); CREATININE 5.25 MG/DL (0.60-1.10); GLUCOSE 200 MG/DL (70-104); MAGNESIUM 1.7 MG/DL (1.5-2.4); PHOSPHORUS 7.4 MG/DL (2.3-4.5); POTASSIUM 4.6 MMOL/L (3.5-5.1); SODIUM 131 MMOL/L (135-145); TOTAL CARBON DIOXIDE 20.7 MMOL/L (24-32); TOTAL PROTEIN 5.7 G/DL (6.4-8.2); TROPONIN I < 0.04 NG/ML (0.0-0.05); VANCOMYCIN,RANDOM 26.3 UG/ML; eGFR 11 ML/MIN
[2019-05-14] MEDS: heparin 25,000 UNIT/250ml bag 250 ML IV SCH (05:49)
[2019-05-14 06:02] LABS: ANISOCYTOSIS 2+; LARGE PLATELETS FEW; PLATELET ESTIMATE INCREASED; TOTAL CELLS COUNTED 100
[2019-05-14 06:03] LABS: HYPOCHROMASIA 1+
--- NOTE | 2019-05-14 06:30 | NUR ---
Problems reprioritized. Patient report given, questions answered & plan of care reviewed with Monserrat MCDERMOTT.
[2019-05-14] MEDS: clopidogrel 75mg tablet PO SCH (07:42)
[2019-05-14] MEDS: MEROPENEM 500MG/50ML-NS IVPB 50 ML IV SCH ×3 (07:42→20:24)
[2019-05-14] MEDS: fluconazole-Diflucan 200mg/NS 100 ML IV SCH (07:42)
[2019-05-14] MEDS: lactobacillus rhamnosus 10,000 MMU CELLS/CAPSULE PO SCH ×2 (07:43→20:24)
[2019-05-14] MEDS: atorvastatin 20mg tablet PO SCH (07:43)
[2019-05-14] MEDS: K and/or MAG REPLACEMENT MC SCH ×2 (07:43→20:00)
[2019-05-14] MEDS: sodium bicarbonate (8.4%) inj. 100 MEQ in dextrose 5%-water 1,000 ML IV SCH ×2 (07:43→22:00)
[2019-05-14] MEDS: heparin, porcine 5000 units/ml vial SQ SCH (07:44)
[2019-05-14] MEDS: aspirin 81mg tablet.DR PO SCH (07:47)
[2019-05-14 09:04] LABS: BASOPHILS # (AUTO) 0.1 X10'3 (0-0.2); BASOPHILS % (AUTO) 0.2 % (0-1); EOSINOPHILS # (AUTO) 0.1 X10'3 (0-0.9); EOSINOPHILS % (AUTO) 0.3 % (0-6); HEMATOCRIT 34.3 % (42.0-52.0); HEMOGLOBIN 10.9 g/dl (14.0-17.9); LYMPHOCYTES # (AUTO) 1.4 X10'3 (1.1-4.8); LYMPHOCYTES % (AUTO) 3.7 % (21-51); MEAN CORPUSCULAR HEMOGLOBIN 25.3 PG (27.0-31.0); MEAN CORPUSCULAR HGB CONC 31.8 g/dL (33.0-36.5); MEAN CORPUSCULAR VOLUME 79.7 FL (78-98); MEAN PLATELET VOLUME 7.8 FL (7.4-10.4); MONOCYTES # (AUTO) 1.6 X10'3 (0-0.9); MONOCYTES % (AUTO) 4.2 % (2-12); NEUTROPHILS # (AUTO) 35.5 X10'3 (1.8-7.7); NEUTROPHILS % (AUTO) 91.6 % (42-75); PLATELET COUNT 847 X10'3 (140-440); RED CELL DISTRIBUTION WIDTH 18.4 % (11.5-14.5)
[2019-05-14 09:10] LABS: WHITE BLOOD COUNT 38.8 X10'3 (4.5-11.0)
[2019-05-14 09:27] LABS: ALBUMIN 1.4 G/DL (3.4-5.0); ANION GAP 12 (8-16); BLOOD UREA NITROGEN 55 MG/DL (7-18); BUN/CREATININE RATIO 11.1 (5.4-32.0); CHLORIDE 97 MMOL/L (99-107); CREATININE 4.95 MG/DL (0.60-1.10); GLUCOSE 228 MG/DL (70-104); MAGNESIUM 1.6 MG/DL (1.5-2.4); PHOSPHORUS 6.9 MG/DL (2.3-4.5); POTASSIUM 4.6 MMOL/L (3.5-5.1); SODIUM 132 MMOL/L (135-145); TOTAL CARBON DIOXIDE 23.4 MMOL/L (24-32); eGFR 12 ML/MIN
[2019-05-14] MEDS: NORepinephrine 8mg/ 250ml NS 250 ML IV SCH ×3 (09:32→15:50)
[2019-05-14] MEDS: micafungin inj 100 MG in normal saline 100ml IV soln 100 ML IV SCH (09:33)
[2019-05-14 09:35] LABS: LIPASE 2145 U/L (73-393)
[2019-05-14 09:51] LABS: EOSINOPHILS # (AUTO) 0.1 X10'3 (0-0.9); HEMOGLOBIN 11.2 g/dl (14.0-17.9)
[2019-05-14 09:53] LABS: BASOPHILS # (AUTO) 0.2 X10'3 (0-0.2); BASOPHILS % (AUTO) 0.4 % (0-1); EOSINOPHILS % (AUTO) 0.2 % (0-6); HEMATOCRIT 34.5 % (42.0-52.0); LYMPHOCYTES # (AUTO) 1.9 X10'3 (1.1-4.8); LYMPHOCYTES % (AUTO) 4.9 % (21-51); MEAN CORPUSCULAR HEMOGLOBIN 25.8 PG (27.0-31.0); MEAN CORPUSCULAR HGB CONC 32.5 g/dL (33.0-36.5); MEAN CORPUSCULAR VOLUME 79.5 FL (78-98); MONOCYTES % (AUTO) 5.1 % (2-12); NEUTROPHILS # (AUTO) 35.1 X10'3 (1.8-7.7); NEUTROPHILS % (AUTO) 89.4 % (42-75); PLATELET COUNT 879 X10'3 (140-440); RED BLOOD COUNT 4.34 X10'6 (4.70-6.10); RED CELL DISTRIBUTION WIDTH 18.2 % (11.5-14.5)
[2019-05-14 09:59] LABS: WHITE BLOOD COUNT 39.3 X10'3 (4.5-11.0)
[2019-05-14 10:04] LABS: ALBUMIN 1.5 G/DL (3.4-5.0); ANION GAP 9 (8-16); BLOOD UREA NITROGEN 54 MG/DL (7-18); BUN/CREATININE RATIO 11.3 (5.4-32.0); CHLORIDE 98 MMOL/L (99-107); CREATININE 4.77 MG/DL (0.60-1.10); GLUCOSE 228 MG/DL (70-104); MAGNESIUM 1.6 MG/DL (1.5-2.4); PHOSPHORUS 6.7 MG/DL (2.3-4.5); POTASSIUM 4.6 MMOL/L (3.5-5.1); SODIUM 131 MMOL/L (135-145); TOTAL CARBON DIOXIDE 24.4 MMOL/L (24-32); eGFR 13 ML/MIN
[2019-05-14 11:09] LABS: EOSINOPHILS # (AUTO) 0.1 X10'3 (0-0.9); EOSINOPHILS % (AUTO) 0.2 % (0-6); HEMOGLOBIN 11.5 g/dl (14.0-17.9); NEUTROPHILS # (AUTO) 34.9 X10'3 (1.8-7.7)
[2019-05-14 11:11] LABS: BASOPHILS % (AUTO) 0.1 % (0-1); HEMATOCRIT 35.2 % (42.0-52.0); LYMPHOCYTES # (AUTO) 1.5 X10'3 (1.1-4.8); LYMPHOCYTES % (AUTO) 3.7 % (21-51); MEAN CORPUSCULAR HGB CONC 32.6 g/dL (33.0-36.5); MEAN CORPUSCULAR VOLUME 79.6 FL (78-98); MEAN PLATELET VOLUME 7.6 FL (7.4-10.4); MONOCYTES # (AUTO) 3.3 X10'3 (0-0.9); MONOCYTES % (AUTO) 8.3 % (2-12); NEUTROPHILS % (AUTO) 87.7 % (42-75); PLATELET COUNT 915 X10'3 (140-440); RED BLOOD COUNT 4.43 X10'6 (4.70-6.10); RED CELL DISTRIBUTION WIDTH 18.2 % (11.5-14.5)
[2019-05-14 11:13] LABS: WHITE BLOOD COUNT 39.8 X10'3 (4.5-11.0)
--- NOTE | 2019-05-14 11:18 | NUR ---
given patients wedding ring, partial, boots & clothes and cell phone/teaching assistant to take home.
[2019-05-14 11:38] LABS: ALBUMIN 1.5 G/DL (3.4-5.0); ANION GAP 10 (8-16); BLOOD UREA NITROGEN 52 MG/DL (7-18); BUN/CREATININE RATIO 11.6 (5.4-32.0); CHLORIDE 97 MMOL/L (99-107); CREATININE 4.48 MG/DL (0.60-1.10); GLUCOSE 221 MG/DL (70-104); MAGNESIUM 1.6 MG/DL (1.5-2.4); PHOSPHORUS 6.5 MG/DL (2.3-4.5); POTASSIUM 4.7 MMOL/L (3.5-5.1); SODIUM 131 MMOL/L (135-145); TOTAL CARBON DIOXIDE 23.7 MMOL/L (24-32); eGFR 14 ML/MIN
[2019-05-14 11:49] LABS: BASOPHILS # (AUTO) 0.2 X10'3 (0-0.2); EOSINOPHILS # (AUTO) 0.1 X10'3 (0-0.9); LYMPHOCYTES # (AUTO) 2.2 X10'3 (1.1-4.8); LYMPHOCYTES % (AUTO) 5.5 % (21-51); MEAN PLATELET VOLUME 7.7 FL (7.4-10.4)
[2019-05-14 11:51] LABS: BASOPHILS % (AUTO) 0.6 % (0-1); EOSINOPHILS % (AUTO) 0.2 % (0-6); HEMOGLOBIN 11.3 g/dl (14.0-17.9); MEAN CORPUSCULAR HEMOGLOBIN 25.8 PG (27.0-31.0); MEAN CORPUSCULAR HGB CONC 32.1 g/dL (33.0-36.5); MEAN CORPUSCULAR VOLUME 80.3 FL (78-98); MONOCYTES # (AUTO) 1.6 X10'3 (0-0.9); NEUTROPHILS # (AUTO) 35.3 X10'3 (1.8-7.7); NEUTROPHILS % (AUTO) 89.7 % (42-75); PLATELET COUNT 865 X10'3 (140-440); RED BLOOD COUNT 4.36 X10'6 (4.70-6.10); RED CELL DISTRIBUTION WIDTH 18.1 % (11.5-14.5)
[2019-05-14 11:53] LABS: ALBUMIN 1.5 G/DL (3.4-5.0); ANION GAP 10 (8-16); BLOOD UREA NITROGEN 51 MG/DL (7-18); BUN/CREATININE RATIO 11.6 (5.4-32.0); CHLORIDE 97 MMOL/L (99-107); CREATININE 4.39 MG/DL (0.60-1.10); GLUCOSE 223 MG/DL (70-104); MAGNESIUM 1.6 MG/DL (1.5-2.4); PHOSPHORUS 6.4 MG/DL (2.3-4.5); POTASSIUM 4.8 MMOL/L (3.5-5.1); SODIUM 132 MMOL/L (135-145); TOTAL CARBON DIOXIDE 24.8 MMOL/L (24-32); WHITE BLOOD COUNT 39.4 X10'3 (4.5-11.0); eGFR 14 ML/MIN
--- NOTE | 2019-05-14 14:11 | NUR ---
F/u: Pt now intubated and started on CVVH w/ MAP 50's this AM per RN. Would benefit from post-pyloric NGTF since in proximal jejunum once more stable for optimal EN. Will monitor for EN needs if prolonged intubation. Addendum: 05/14/19 at [address] Amended: Links added.
[2019-05-14] MEDS: insulin regular, human vial - multi-dose SQ SCH ×2 (14:17→20:33)
[2019-05-14] MEDS: NORMAL SALINE IV SCH (16:10)
[2019-05-14] MEDS: VASOPRESSIN IV SCH (16:10)
[2019-05-14 18:03] LABS: BASOPHILS # (AUTO) 0.2 X10'3 (0-0.2); BASOPHILS % (AUTO) 0.5 % (0-1); EOSINOPHILS # (AUTO) 0.3 X10'3 (0-0.9); EOSINOPHILS % (AUTO) 0.8 % (0-6); HEMATOCRIT 35.7 % (42.0-52.0); HEMOGLOBIN 11.3 g/dl (14.0-17.9); LYMPHOCYTES # (AUTO) 1.9 X10'3 (1.1-4.8); LYMPHOCYTES % (AUTO) 5.1 % (21-51); MEAN CORPUSCULAR HEMOGLOBIN 25.2 PG (27.0-31.0); MEAN CORPUSCULAR HGB CONC 31.6 g/dL (33.0-36.5); MEAN CORPUSCULAR VOLUME 79.7 FL (78-98); MEAN PLATELET VOLUME 7.9 FL (7.4-10.4); MONOCYTES # (AUTO) 3.2 X10'3 (0-0.9); MONOCYTES % (AUTO) 8.5 % (2-12); NEUTROPHILS # (AUTO) 32.2 X10'3 (1.8-7.7); NEUTROPHILS % (AUTO) 85.1 % (42-75); PLATELET COUNT 852 X10'3 (140-440); RED BLOOD COUNT 4.48 X10'6 (4.70-6.10); RED CELL DISTRIBUTION WIDTH 18.2 % (11.5-14.5)
[2019-05-14] MEDS: NORepinephrine inj. 32 MG in normal saline 250ml IV soln 218 ML IV SCH ×2 (18:16→23:28)
[2019-05-14 18:17] LABS: ALANINE AMINOTRANSFERASE 17 U/L (12-78); ALBUMIN 1.3 G/DL (3.4-5.0); ALBUMIN/GLOBULIN RATIO 0.3 (1.1-1.5); ALKALINE PHOSPHATASE 151 IU/L (46-116); ANION GAP 10 (8-16); ASPARTATE AMINO TRANSFERASE 145 U/L (10-37); BILIRUBIN,TOTAL 0.4 MG/DL (0.1-1.0); BLOOD UREA NITROGEN 43 MG/DL (7-18); CALCIUM 7.5 MG/DL (8.5-10.1); CHLORIDE 99 MMOL/L (99-107); CREATININE 3.92 MG/DL (0.60-1.10); GLUCOSE 234 MG/DL (70-104); MAGNESIUM 1.6 MG/DL (1.5-2.4); PHOSPHORUS 5.1 MG/DL (2.3-4.5); POTASSIUM 4.7 MMOL/L (3.5-5.1); SODIUM 134 MMOL/L (135-145); TOTAL CARBON DIOXIDE 25.4 MMOL/L (24-32); TOTAL PROTEIN 5.1 G/DL (6.4-8.2); WHITE BLOOD COUNT 37.7 X10'3 (4.5-11.0); eGFR 16 ML/MIN
[2019-05-14 18:24] LABS: NUCLEATED RED BLOOD CELLS 1 /100WBC (0-0); TOTAL CELLS COUNTED 200
[2019-05-14 18:25] LABS: ANISOCYTOSIS 2+; MICROCYTOSIS 1+; PLATELET ESTIMATE INCREASED
[2019-05-14 18:27] LABS: GIANT PLATELET FEW; HYPOCHROMASIA 1+; LARGE PLATELETS FEW; POLYCHROMASIA 1+; STOMATOCYTES FEW; TEAR DROP CELLS FEW
--- NOTE | 2019-05-14 18:30 | NUR ---
Patient in room ICU 2041. I have received report from Monserrat MCDERMOTT and had the opportunity to ask questions and assume patient care. Patient intubated, sedated, and with CVVH infusing without complications at this time. BP at 64/46 with vasopressin and levophed infusing. HR In 120s. Will titrate pressors to achieve MAP 60 per eMAR orders
[2019-05-14 19:16] LABS: ABG BASE EXCESS -6.3 mmol/L (-2.0-3.0); ABG HCO3 17.9 mmol/L (22.0-26.0); ABG PCO2 (T) 32.1 mmHg (35.0-45.0); ABG PH (T) 7.366 (7.350-7.450); ALLEN'S TEST POSITIVE; FCOHb 0.1 % (0.5-1.5); FMetHb 0.3 % (0.3-1.12); FO2Hb 93.6 % (94-100); PATIENT TEMPERATURE 37.2; PEEP 10 cm H2O; RESPIRATORY RATE 20 b/min; TIDAL VOLUME 500 mL; TOTAL HEMOGLOBIN 12.2 G/dl (14.0-17.9)
[2019-05-14] MEDS: Duosol 4K/3 Ca (w/calcium) 5,000 ML HE SCH ×4 (20:04→23:48)
[2019-05-14] MEDS: insulin glargine (Lantus) pen - multi-dose SQ SCH (20:34)
[2019-05-14 23:32] LABS: BASOPHILS # (AUTO) 0.2 X10'3 (0-0.2); EOSINOPHILS # (AUTO) 0.1 X10'3 (0-0.9); EOSINOPHILS % (AUTO) 0.2 % (0-6); LYMPHOCYTES # (AUTO) 2.4 X10'3 (1.1-4.8); LYMPHOCYTES % (AUTO) 6.4 % (21-51)
[2019-05-14 23:34] LABS: BASOPHILS % (AUTO) 0.4 % (0-1); HEMATOCRIT 35.2 % (42.0-52.0); HEMOGLOBIN 11.5 g/dl (14.0-17.9); MEAN CORPUSCULAR HEMOGLOBIN 25.8 PG (27.0-31.0); MEAN CORPUSCULAR HGB CONC 32.6 g/dL (33.0-36.5); MEAN CORPUSCULAR VOLUME 79.3 FL (78-98); MEAN PLATELET VOLUME 7.9 FL (7.4-10.4); MONOCYTES # (AUTO) 2.5 X10'3 (0-0.9); MONOCYTES % (AUTO) 6.5 % (2-12); NEUTROPHILS # (AUTO) 32.9 X10'3 (1.8-7.7); NEUTROPHILS % (AUTO) 86.5 % (42-75); PLATELET COUNT 845 X10'3 (140-440); RED BLOOD COUNT 4.43 X10'6 (4.70-6.10)
[2019-05-14 23:44] LABS: ALANINE AMINOTRANSFERASE 148 U/L (12-78); ALBUMIN 1.3 G/DL (3.4-5.0); ALBUMIN/GLOBULIN RATIO 0.3 (1.1-1.5); ALKALINE PHOSPHATASE 174 IU/L (46-116); ANION GAP 12 (8-16); BILIRUBIN,TOTAL 0.6 MG/DL (0.1-1.0); BLOOD UREA NITROGEN 42 MG/DL (7-18); BUN/CREATININE RATIO 10.2 (5.4-32.0); CHLORIDE 99 MMOL/L (99-107); CREATININE 4.11 MG/DL (0.60-1.10); GLUCOSE 193 MG/DL (70-104); MAGNESIUM 1.7 MG/DL (1.5-2.4); PHOSPHORUS 5.7 MG/DL (2.3-4.5); POTASSIUM 5.2 MMOL/L (3.5-5.1); SODIUM 134 MMOL/L (135-145); TOTAL PROTEIN 5.2 G/DL (6.4-8.2); eGFR 15 ML/MIN
[2019-05-14 23:59] LABS: ASPARTATE AMINO TRANSFERASE 1636 U/L (10-37)
[2019-05-15] VITALS (16 sets, daily range): BP systolic 30–135; BP diastolic 41–82
[2019-05-15] MEDS: heparin 25,000 UNIT/250ml bag 250 ML IV SCH (01:27)
[2019-05-15] MEDS: mineral oil/petrolatum ophthal oint EACHEYE SCH ×2 (02:26→08:27)
[2019-05-15] MEDS: MEROPENEM 500MG/50ML-NS IVPB 50 ML IV SCH ×2 (02:28→08:26)
[2019-05-15] MEDS: insulin regular, human vial - multi-dose SQ SCH (02:30)
[2019-05-15 02:42] LABS: EOSINOPHILS # (AUTO) 0.1 X10'3 (0-0.9); EOSINOPHILS % (AUTO) 0.3 % (0-6); MONOCYTES # (AUTO) 2.7 X10'3 (0-0.9)
[2019-05-15 02:43] LABS: BASOPHILS # (AUTO) 0.5 X10'3 (0-0.2); BASOPHILS % (AUTO) 1.3 % (0-1); HEMATOCRIT 37.6 % (42.0-52.0); HEMOGLOBIN 12.1 g/dl (14.0-17.9); LYMPHOCYTES # (AUTO) 3.1 X10'3 (1.1-4.8); LYMPHOCYTES % (AUTO) 7.8 % (21-51); MEAN CORPUSCULAR HEMOGLOBIN 25.8 PG (27.0-31.0); MEAN CORPUSCULAR HGB CONC 32.2 g/dL (33.0-36.5); MEAN CORPUSCULAR VOLUME 80.1 FL (78-98); MONOCYTES % (AUTO) 6.9 % (2-12); NEUTROPHILS % (AUTO) 83.7 % (42-75); PLATELET COUNT 764 X10'3 (140-440)
[2019-05-15] MEDS: ipratropium/albuterol 3ml nebule NEB SCH ×4 (02:54→14:29)
[2019-05-15 02:55] LABS: ABG BASE EXCESS -10.8 mmol/L (-2.0-3.0); ABG HCO3 14.7 mmol/L (22.0-26.0); ABG OXYGEN SATURATION 94.2 % (95-98); ABG PCO2 (T) 31.1 mmHg (35.0-45.0); ABG PO2 (T) 77.2 mmHg (83-108); ALLEN'S TEST POSITIVE; FMetHb 0.3 % (0.3-1.12); FO2Hb 93.9 % (94-100); PATIENT TEMPERATURE 36.5; PEEP 10 cm H2O; RESPIRATORY RATE 20 b/min; TIDAL VOLUME 500 mL; TOTAL HEMOGLOBIN 12.9 G/dl (14.0-17.9)
[2019-05-15 03:10] LABS: ALANINE AMINOTRANSFERASE 342 U/L (12-78); ALBUMIN 1.3 G/DL (3.4-5.0); ALBUMIN/GLOBULIN RATIO 0.3 (1.1-1.5); ALKALINE PHOSPHATASE 207 IU/L (46-116); ANION GAP 9 (8-16); BILIRUBIN,TOTAL 0.6 MG/DL (0.1-1.0); BLOOD UREA NITROGEN 40 MG/DL (7-18); BUN/CREATININE RATIO 10.3 (5.4-32.0); CALCIUM 8.1 MG/DL (8.5-10.1); CHLORIDE 100 MMOL/L (99-107); CREATININE 3.88 MG/DL (0.60-1.10); GLUCOSE 162 MG/DL (70-104); POTASSIUM 5.2 MMOL/L (3.5-5.1); SODIUM 133 MMOL/L (135-145); TOTAL CARBON DIOXIDE 23.7 MMOL/L (24-32); TOTAL PROTEIN 5.3 G/DL (6.4-8.2); VANCOMYCIN,RANDOM 15.6 UG/ML; eGFR 16 ML/MIN
[2019-05-15 03:15] LABS: WHITE BLOOD COUNT 39.5 X10'3 (4.5-11.0)
[2019-05-15 04:20] LABS: ASPARTATE AMINO TRANSFERASE 4295 U/L (10-37)
[2019-05-15] MEDS ORDERED: VANCOMYCIN LEVEL IV ONE (04:30)
[2019-05-15] MEDS: NORepinephrine inj. 32 MG in normal saline 250ml IV soln 218 ML IV SCH ×2 (04:54→12:14)
[2019-05-15] MEDS: sodium bicarbonate (8.4%) inj. 100 MEQ in dextrose 5%-water 1,000 ML IV SCH ×2 (05:35→08:25)
[2019-05-15 06:15] LABS: BASOPHILS # (AUTO) 0.3 X10'3 (0-0.2); EOSINOPHILS # (AUTO) 0.1 X10'3 (0-0.9); EOSINOPHILS % (AUTO) 0.1 % (0-6); MEAN CORPUSCULAR HEMOGLOBIN 25.4 PG (27.0-31.0); MEAN CORPUSCULAR HGB CONC 30.9 g/dL (33.0-36.5)
[2019-05-15 06:18] LABS: BASOPHILS % (AUTO) 0.6 % (0-1); HEMATOCRIT 37.9 % (42.0-52.0); HEMOGLOBIN 11.7 g/dl (14.0-17.9); LYMPHOCYTES % (AUTO) 9.8 % (21-51); MEAN PLATELET VOLUME 7.9 FL (7.4-10.4); MONOCYTES # (AUTO) 2.2 X10'3 (0-0.9); MONOCYTES % (AUTO) 5.3 % (2-12); NEUTROPHILS # (AUTO) 34.3 X10'3 (1.8-7.7); NEUTROPHILS % (AUTO) 84.2 % (42-75); PLATELET COUNT 670 X10'3 (140-440); RED BLOOD COUNT 4.62 X10'6 (4.70-6.10); RED CELL DISTRIBUTION WIDTH 18.5 % (11.5-14.5)
--- NOTE | 2019-05-15 06:25 | NUR ---
Problems reprioritized. Patient report given, questions answered & plan of care reviewed with Monserrat MCDERMOTT.
[2019-05-15 06:57] LABS: WHITE BLOOD COUNT 40.8 X10'3 (4.5-11.0)
[2019-05-15 07:33] LABS: NUCLEATED RED BLOOD CELLS 4 /100WBC (0-0); TOTAL CELLS COUNTED 100
[2019-05-15 07:34] LABS: ANISOCYTOSIS 2+; GIANT PLATELET FEW; LARGE PLATELETS FEW; PLATELET ESTIMATE INCREASED
--- NOTE | 2019-05-15 07:45 | NUR ---
JAMAAL down. Called institutional research coordinator RN
[2019-05-15] MEDS: K and/or MAG REPLACEMENT MC SCH (08:00)
[2019-05-15] MEDS: micafungin inj 100 MG in normal saline 100ml IV soln 100 ML IV SCH (08:26)
[2019-05-15] MEDS: lactobacillus rhamnosus 10,000 MMU CELLS/CAPSULE PO SCH (08:26)
[2019-05-15] MEDS: atorvastatin 20mg tablet PO SCH (08:26)
[2019-05-15] MEDS: aspirin 81mg tablet.DR PO SCH (08:26)
[2019-05-15] MEDS: clopidogrel 75mg tablet PO SCH (08:26)
--- NOTE | 2019-05-15 08:30 | NUR ---
Difficult time getting accurate blood pressure, attempted multiple sites and cuff sizes.
[2019-05-15] MEDS ORDERED: tPA-cathflo 2 MG/2 ml IV flush IVF ONE (08:45)
--- NOTE | 2019-05-15 11:10 | NUR ---
Dr Mendez to have phone conference with Jacquelin HAAS, manager financial services, and son.
--- NOTE | 2019-05-15 11:30 | NUR ---
Dr. Mendez informed only able to get b/p with manual cuff and doppler. Ordered Neosynepherine to start at 100mcg/kg/min.
[2019-05-15] MEDS ORDERED: phenylephrine inj 50 MG in normal saline 250ml IV soln 250 ML IV SCH (11:40)
--- NOTE | 2019-05-15 12:45 | NUR ---
Called environmental science program director HD RN to restart CVVH per Dr Mendez
--- NOTE | 2019-05-15 12:47 | NUR ---
F/u: Pt remains intubated and sedated. MAP remains in 50's despite vasopressin added and doubled dosage of levophed per bedside RN during critical care rounds. Per bakery sales clerk, pt with multiorgan failure of kidneys, lungs, and liver shock with AST and ALT tripled from yesterday. 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 Pt with large gastric output in NG tube of 1610ml. Per bakery sales clerk, pt may start TPN tomorrow as EN is contraindicated in view of above. TPN recs below. Will continue to monitor. Rec: 1. Possible TPN per bakery sales clerk starting tomorrow; will provide recommendations to pharmacy 2. IF TPN, continuous 2:1 TPN using Clinimix E 08/28 at 95ml/hr to provide total volume of 2280ml, total 2006 calories, 114g protein, 456g dextrose and 2.75mg/kg/min dextrose loading. Using this formula available, unable to meet needs on ventilator and with CVVH and unable to provide custom TPN at this time; pt needs 182-227g protein to meet needs. 3. IF TPN, provide separate 20% intralipids to run for 12 hours each day at 8ml per hour providing total volume of 96ml and 192 calories and 19.2g lipid to prevent essential fatty acid deficiency 4. bowel care as needed 5. wt per rx Addendum: 05/15/19 at 1249 by Wing Kaitlin MUÑIZ Amended: Links added. Addendum: 05/15/19 at [address] RD agree with internal medicine nurse note
[2019-05-15 13:39] LABS: ALANINE AMINOTRANSFERASE 894 U/L (12-78); ALBUMIN/GLOBULIN RATIO 0.3 (1.1-1.5); ALKALINE PHOSPHATASE 418 IU/L (46-116); ANION GAP 22 (8-16); BILIRUBIN,TOTAL 1.1 MG/DL (0.1-1.0); BLOOD UREA NITROGEN 38 MG/DL (7-18); BUN/CREATININE RATIO 8.5 (5.4-32.0); CHLORIDE 99 MMOL/L (99-107); CREATININE 4.45 MG/DL (0.60-1.10); MAGNESIUM 2.3 MG/DL (1.5-2.4); SODIUM 134 MMOL/L (135-145); TOTAL PROTEIN 4.4 G/DL (6.4-8.2); eGFR 14 ML/MIN
[2019-05-15 13:52] LABS: GLUCOSE 48 MG/DL (70-104); POTASSIUM 7.9 MMOL/L (3.5-5.1)
[2019-05-15 13:53] LABS: PHOSPHORUS 12.7 MG/DL (2.3-4.5)
[2019-05-15] MEDS ORDERED: calcium chloride 100 MG/1 ML inj IV ONE ×2 (13:57→15:02)
[2019-05-15 14:05] LABS: LIPASE 4445 U/L (73-393)
[2019-05-15] MEDS ORDERED: albuterol 2.5 MG/3 ML nebule NEB PRN (14:05)
[2019-05-15] MEDS: VASOPRESSIN IV SCH (14:13)
[2019-05-15] MEDS: NORMAL SALINE IV SCH (14:13)
[2019-05-15 14:22] LABS: ASPARTATE AMINO TRANSFERASE > 7000 U/L (10-37)
--- NOTE | 2019-05-15 14:26 | NUR ---
Student documentation: I have reviewed and agree with all interventions, assessments performed and documented by SN Shannon.
--- NOTE | 2019-05-15 14:30 | NUR ---
15 ML ALBUTEROL NEB PER MD JUAN. PT'S 1500 DUO TX ON HOLD UNTIL NEXT ROUND. Addendum: 05/15/19 at [address] Amended: Links added.
[2019-05-15 14:54] LABS: AMYLASE 577 U/L (25-115); EOSINOPHILS # (AUTO) 0.2 X10'3 (0-0.9); HEMOGLOBIN 10.4 g/dl (14.0-17.9)
[2019-05-15 14:57] LABS: BASOPHILS # (AUTO) 0.2 X10'3 (0-0.2); BASOPHILS % (AUTO) 0.5 % (0-1); EOSINOPHILS % (AUTO) 0.3 % (0-6); HEMATOCRIT 36.2 % (42.0-52.0); LYMPHOCYTES # (AUTO) 5.9 X10'3 (1.1-4.8); LYMPHOCYTES % (AUTO) 12.7 % (21-51); MEAN CORPUSCULAR HEMOGLOBIN 26.1 PG (27.0-31.0); MEAN CORPUSCULAR HGB CONC 28.7 g/dL (33.0-36.5); MEAN CORPUSCULAR VOLUME 90.8 FL (78-98); MEAN PLATELET VOLUME 7.7 FL (7.4-10.4); MONOCYTES # (AUTO) 1.4 X10'3 (0-0.9); NEUTROPHILS # (AUTO) 38.6 X10'3 (1.8-7.7); NEUTROPHILS % (AUTO) 83.5 % (42-75); PLATELET COUNT 506 X10'3 (140-440); RED BLOOD COUNT 3.99 X10'6 (4.70-6.10); RED CELL DISTRIBUTION WIDTH 19.3 % (11.5-14.5)
[2019-05-15 15:00] LABS: NUCLEATED RED BLOOD CELLS 15 /100WBC (0-0); PLATELET ESTIMATE INCREASED; TOTAL CELLS COUNTED 100
[2019-05-15 15:03] LABS: ANISOCYTOSIS 2+
[2019-05-15 15:04] LABS: HYPOCHROMASIA 1+; POLYCHROMASIA FEW
[2019-05-15 15:06] LABS: BURR CELLS FEW; GIANT PLATELET FEW; LARGE PLATELETS FEW
[2019-05-15 15:13] LABS: WHITE BLOOD COUNT 46.2 X10'3 (4.5-11.0)
--- NOTE | 2019-05-15 15:23 | NUR ---
Pt with moments of asystole and extreme rené. at bedside. Md speaking to family.
--- NOTE | 2019-05-15 16:30 | NUR ---
Pt reached asystole. at bedside. aware. CRN notified.
== END 2019-05-15 16:30 | disposition expired | DRG 871 ==
LOC: ER 18:40 → ED HOLD 05-10 00:24 → ORTHO 4S 05-10 02:30 → ICU 2S 05-12 11:33
PROVIDERS: ADMIT Internal Medicine
PROC: BW211ZZ Computerized Tomography (CT Scan) of Abdomen and Pelvis using Low Osmolar Contrast (ICD-10-PCS; 2019-05-09)
PROC: 0W9G3ZZ Drainage of Peritoneal Cavity, Percutaneous Approach (ICD-10-PCS; 2019-05-11)
PROC: 5A1D90Z Performance of Urinary Filtration, Continuous, Greater than 18 hours Per Day (ICD-10-PCS; 2019-05-14)
PROC: 5A1945Z Respiratory Ventilation, 24-96 Consecutive Hours (ICD-10-PCS; principal; 2019-05-15)
PROC: 0BH17EZ Insertion of Endotracheal Airway into Trachea, Via Natural or Artificial Opening (ICD-10-PCS; 2019-05-15)
PROC: 05HY33Z Insertion of Infusion Device into Upper Vein, Percutaneous Approach (ICD-10-PCS; 2019-05-15)
PROC: 06HY33Z Insertion of Infusion Device into Lower Vein, Percutaneous Approach (ICD-10-PCS; 2019-05-15)
DX: A41.9 Sepsis, unspecified organism (principal); K65.9 Peritonitis, unspecified; K85.90 Acute pancreatitis without necrosis or infection, unspecified; R65.21 Severe sepsis with septic shock; J96.00 Acute respiratory failure, unspecified whether with hypoxia or hypercapnia; K72.00 Acute and subacute hepatic failure without coma; K86.3 Pseudocyst of pancreas; N17.9 Acute kidney failure, unspecified; R18.8 Other ascites; K86.1 Other chronic pancreatitis; E11.9 Type 2 diabetes mellitus without complications; K80.20 Calculus of gallbladder without cholecystitis without obstruction; E78.1 Pure hyperglyceridemia; E78.5 Hyperlipidemia, unspecified; E87.5 Hyperkalemia; I10 Essential (primary) hypertension; I25.10 Atherosclerotic heart disease of native coronary artery without angina pectoris; I25.2 Old myocardial infarction; Z95.5 Presence of coronary angioplasty implant and graft; Z88.0 Allergy status to penicillin; Z79.899 Other long term (current) drug therapy
CPT/HCPCS: 36415; 36600; 49083; 71045; 74177; 76937; 80053; 80069; 80202; 82042; 82150; 82330; 82550; 82803; 82945; 82948; 83036; 83605; 83615; 83690; 83735; 84100; 84145; 84157; 84478; 84484; 85018; 85025; 85610; 85730; 87040; 87070; 87081; 89051; 90935; 93005; 93308; 94002; 94003; 94640; 94660; 94760; 96374; 96375; 99285; E1594; G0378; J0330; J0692; J1170; J1450; J1644; J1815; J1940; J2060; J2185; J2248; J2250; J2270; J2370; J2405; J2997; J3010; J3370; J3475; J3490; J7030; J7050; P9047; Q9967